=== PATIENT | male | born 1950 | race Caucasian/White ===

== ENCOUNTER 2016-08-12 10:12 | Outpatient (RCR) | payer BC ==
[~2016-08-12 10:12] MED LIST: ALLO100T PO; ASPI325T28 PO; BUSP10TA PO; CALC1TAB9 PO; CETI10TA PO; COEN200C PO; COLA100C PO; D3 PO; FISH120012 PO; FURO20TA2 PO; GEMF600T PO; GLUC1CAP9 PO; META48.53 PO; MULT1TAB18 PO; NORC5TAB PO; OMEP40CA2 PO; RAMI10CA PO; SIMV40TA2 PO; asthmanex INH
[2016-09-05] MEDS ORDERED: SILV-4 TOP (09:50)
--- NOTE | 2016-09-11 09:03 | RADONC ---
RADIATION ONCOLOGY PROGRESS NOTE: DATE OF SERVICE: 09/08/2016 Mr. Cedillo is thus far at a dose of 2700 cGy to his rectum and was last treated on 09/05/2016. The patient has been on break for today after complaining of loose bowel movements and pain upon bowel movements. He contacted us and said he would like to resume radiation the day after tomorrow. As long as he is doing better, we are more than willing to start him then. I suspect Mr. Cedillo will have a 2-day break and then begin on Thursday.
== END 2016-09-09 ==
LOC: M ONCR 10:12
PROVIDERS: ATTEND Radiology Radiation Oncology
DX: C21.0 Malignant neoplasm of anus, unspecified (principal)

== ENCOUNTER 2016-09-10 10:28 | Outpatient (RCR) | payer MEDICARE ==
[~2016-09-10 10:28] MED LIST changes: +SILV-4 TOP
--- NOTE | 2016-09-16 09:52 | RADONC ---
RADIATION ONCOLOGY PROGRESS NOTE CHART NUMBER: [id number] DATE: 09/15/2016 Mr. Cedillo is presently at a dose of 2880 cGy to his rectum and had been on rest all last week. He returns today reporting that he is feeling somewhat better and willing to restart radiation. The patient's review of systems is positive for some skin discomfort in the irradiated field but is otherwise noncontributory. He denies nausea, vomiting, fevers, chills, night sweats, diplopia, headaches, anxiety or depression, anorexia, weight loss, visual disturbances, chest pain, urinary or bowel difficulties, bone pain, or neurological problems. PHYSICAL EXAMINATION: The patient's skin shows some erythema present but overall is in good condition with no evidence of moist or dry desquamation. The remainder of his physical exam remains unchanged. Mr. Cedillo is tolerating treatments quite well and radiation has resumed today.
--- NOTE | 2016-09-23 10:24 | RADONC ---
RADIATION ONCOLOGY PROGRESS NOTE DATE: 09/22/2016 CHART NUMBER: [id number] Mr. Cedillo is presently at a dose of 3780 centigrade to his rectum and is tolerating treatments quite well at this point with no significant difficulties related to his radiation therapy other than some tenderness of the perineal area. He also some discomfort with bowel movement. The patient's review of systems is positive for some discomfort when moving his bowels, but is otherwise noncontributory. REVIEW OF SYSTEMS: The patient's review of systems is noncontributory. Denies nausea, vomiting, fevers, chills, night sweats, diplopia, headaches, anxiety or depression, anorexia, weight loss, visual disturbances, chest pain, urinary or bowel difficulties, bone pain, or neurological problems. PHYSICAL EXAMINATION: The patient's skin shows some erythema and tanning present but overall is in generally good condition with no evidence of moist or dry desquamation. The remainder of his physical exam remains unchanged. Mr. Cedillo is tolerating treatments quite well and radiation will continue as scheduled. Edited: 09/24/2015 0531
--- NOTE | 2016-09-30 12:56 | RADONC ---
RADIATION ONCOLOGY TREATMENT SUMMARY DATE: 09/26/2016 CHART NUMBER: [id number]. DIAGNOSIS: Rectal cancer. STAGE: IIIA, T3N1M0. ECOG PERFORMANCE STATUS: 1 TREATMENT SUMMARY: Mr. 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 The patient was initially diagnosed as an anal carcinoma, but following our tumor conference and review of pathology, apparently this was actually a rectal carcinoma and is therefore being treated with preoperative chemo and radiation. We treated the patient to his rectum for a dose of 4500 cGy delivered in 25 fractions of 180 cGy each over 38 elapsed days from 08/18/2016 through 09/26/2016. The patient's rectum was treated on the linear accelerator utilizing 3D conformal technique with anterior, posterior, left and right lateral estrada. An 18 MV photon beam was utilized. The patient received concomitant chemotherapy with Xeloda. Mr. Cedillo tolerated his treatments quite well and was able to complete therapy as prescribed without interruption except for a short treatment break secondary to skin reaction. I have scheduled the patient to see me again in 1 month for further followup. He will also be followed by his other physicians as well. His surgery is scheduled and we will see him prior to surgical excision. cc: MD Dejon Joshi MD Robert Johnson, MD *[facility] *Joey Landon MD
== END 2016-10-07 ==
LOC: M ONCR 10:28
PROVIDERS: ATTEND Radiology Radiation Oncology
DX: C21.0 Malignant neoplasm of anus, unspecified (principal)

== ENCOUNTER → 2016-10-10 | Outpatient (REF) | payer MEDICARE | LOC: M LAB REF 12:28 | PROVIDERS: ATTEND Internal Medicine Medical Oncology | DX: C20 Malignant neoplasm of rectum (principal) ==

== ENCOUNTER → 2016-10-29 | Outpatient (CLI) | payer MEDICARE ==
--- NOTE | 2016-10-30 10:20 | RADONC ---
RADIATION ONCOLOGY FOLLOWUP NOTE DATE: 10/29/2016 CHART NUMBER: [id number]. DIAGNOSIS: Rectal cancer. STAGE: IIIA, T3N1M0. ECOG PERFORMANCE STATUS: 0. FOLLOWUP NOTE: Mr. Cedillo is a very pleasant, 66-year-old white male with the diagnosis of what appears to be a stage IIIA, T3N1M0 moderately differentiated adenocarcinoma of the rectum who is presenting to us today for routine followup visit 1 month post completion of external beam radiation therapy. The patient presents today reporting that he is doing quite well with no complaints at this time related to his radiation therapy or disease. He has no urinary or bowel difficulties. No bone pain. REVIEW OF SYSTEMS: The patient's review of systems is noncontributory. Denies nausea, vomiting, fevers, chills, night sweats, diplopia, headaches, anxiety or depression, anorexia, weight loss, visual disturbances, chest pain, urinary or bowel difficulties, bone pain, or neurological problems. PHYSICAL EXAMINATION: The patient is a well-developed, well-nourished male in no acute distress. HEENT exam is normocephalic, atraumatic. Extraocular movements are intact. There is no palpable cervical, supraclavicular, infraclavicular, axillary, or inguinal lymphadenopathy present. Lungs are clear to auscultation and percussion. Heart has a regular rate and rhythm. Abdomen is benign with no hepatosplenomegaly, masses, or tenderness. Rectal examination reveals a normal anal sphincter tone. His prostate is smooth with no evidence of nodularity. There is continuing to be some roughness just past the anal verge into the rectum, which is markedly reduced. Skeletal examination reveals no tenderness to pressure or percussion of the bony skeleton. Extremities reveal no clubbing, cyanosis, or edema. Neurologic exam is grossly intact, as is the remainder of the physical examination. ASSESSMENT: Mr. Cedillo is clinically doing quite well with a very nice response to radiation therapy. He is scheduled to meet with his surgeon, Dr. Joey Landon, on Thursday this week to schedule and discuss his surgery. In light of the fact that he will be followed and managed so closely by his surgical oncologist, I have set him up for routine followup in our office in 6 months' time. cc: MD Dejon Joshi MD Robert Johnson, MD *[facility] *Joey Landon MD
== END ==
LOC: M ONCR 14:30
PROVIDERS: ATTEND Radiology Radiation Oncology
DX: C21.0 Malignant neoplasm of anus, unspecified (principal)

== ENCOUNTER → 2016-12-29 | Outpatient (REF) | payer MEDICARE ==
[~2016-12-29] MED LIST changes: -COLA100C PO; +COLA100C3 PO; +NORC1TAB4 PO; -NORC5TAB PO
== END ==
LOC: M LAB REF 12:58
PROVIDERS: ATTEND Internal Medicine Medical Oncology
DX: C20 Malignant neoplasm of rectum (principal)

== ENCOUNTER → 2017-02-11 | Outpatient (CLI) | payer MEDICARE ==
[~2017-02-11] MED LIST changes: -COLA100C3 PO; +COLA100C5 PO; +GASTROGRAFIN SOLUTION 30ML (Q9963) As Ordered ONE; +ISOVUE-370 76% 100ML VIAL (Q9967) As Ordered ONE
--- NOTE | 2017-02-12 16:03 | REPUSA ---
HISTORY: -RECTAL CA ?SBO. TECHNIQUE: Axial CT imaging of the abdomen and pelvis with sagittal and coronal reformatted imaging, with oral and intravenous contrast enhancement. DLP= 775.4 mGy-cm. FINDINGS: There is a low attenuated lesion laterally in the right lobe of the liver measuring approxi mately 4.5 x 2.1 x1.9 cm with peripheral contrast enhancement, most likely representing cavernous hem angioma, although further diagnostic imaging may be warranted in this patient with history of rectal carcinoma, in order to rule out possible solitary liver metastatic lesion, with dynamic contrast-enha nced MRI examination. No other liver is seen at this time. Biliary tree is normal. There is a 1.8 cm gallstone noted in the gallbladder. Pancreas is normal. Spleen is normal. Adrenal glands are no rmal. Left kidney functions normally without mass or calculus or obstruction seen. Left ureter is normal. Right kidney functions, but there is right hydronephrosis and proximal right hydroureter, although n o definite ureteral calculus is seen at this time. Follow-up imaging and consideration of retrograde pyelography is suggested if clinically indicated to evaluate and localize possible distal ureteral o bstruction. There are multiple calcified plaques seen in the abdominal aorta, bilateral renal arteries, and in th e iliac arteries with no evidence of aneurysm or retroperitoneal hemorrhage. No retroperitoneal lymp hadenopathy is seen. There is a stoma over the left lower quadrant of the abdomen with normal appearance of colostomy. Th e oral contrast is limited to the small bowel without oral contrast opacification seen in the colon. There is soft tissue density seen around the rectum which may correspond to the reported history of rectal carcinoma, but detailed evaluation is limited without oral contrast. There is fluid distentio n of the sigmoid colon and there is question of a tethered paracolic mass seen around the proximal si gmoid colon on series 201, image 94. This area is also limited without the benefit of complete bowel lumen contrast enhancement. There is a small amount of ascites identified in the right paracolic gu tter measuring 2.8 cm in thickness. There is a small amount of ascites in the anterior dependent abd omen. Bone windows demonstrate no detectable evidence of fracture or metastatic skeletal lesion. IMPRESSION: 1. 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 MRI examination is suggested to rule out possible meta static lesion in this patient with history of rectal carcinoma, if clinically indicated. 2. Cholelithiasis. 3. Right hydronephrosis and proximal right hydroureter in which distal ureteral obstruction cannot b e excluded at this time. Clinical correlation and consideration of retrograde pyelography or percuta neous nephrostomy is suggested if indicated. 4. Satisfactory appearance of stoma over the left lower quadrant of the abdomen. There is fluid dis tention seen in the colon which is not opacified with contrast, limiting detailed evaluation. There is inability to exclude possible mass in the rectum and there is question of a possible paracolic mas s in the proximal sigmoid colon as discussed above and there is a small amount of ascites in the righ t paracolic gutter and in the anterior dependent abdomen. Clinical correlation and consideration of PET/CT scan is suggested if clinically indicated. Clinical correlation and followup imaging may be warranted as clinically indicated.
== END ==
LOC: M RAD 16:25
PROVIDERS: ATTEND Internal Medicine Medical Oncology
DX: C20 Malignant neoplasm of rectum (principal); K76.9 Liver disease, unspecified; K80.20 Calculus of gallbladder without cholecystitis without obstruction; N13.1 Hydronephrosis with ureteral stricture, not elsewhere classified; R93.3 Abnormal findings on diagnostic imaging of other parts of digestive tract
CPT/HCPCS: 74177; Q9963; Q9967

== ENCOUNTER → 2017-03-13 | Outpatient (CLI) | payer MEDICARE ==
[~2017-03-13] MED LIST changes: -GASTROGRAFIN SOLUTION 30ML (Q9963) As Ordered ONE; -ISOVUE-370 76% 100ML VIAL (Q9967) As Ordered ONE
[2017-03-13 13:37] LABS: MEAN CORPUSCULAR HEMOGLOBIN 27.2 pg (27.0-33.0); MEAN CORPUSCULAR HGB CONC 32.3 g/dl (32.0-36.5); MEAN CORPUSCULAR VOLUME 84.3 fl (80.0-96.0); RED CELL DISTRIBUTION WIDTH 20.2 % (11.5-14.5)
[2017-03-13 13:47] LABS: WHITE BLOOD COUNT 37.8 K/mm3 (4.0-10.0)
[2017-03-13 13:49] LABS: ALBUMIN 3.8 GM/DL (3.2-5.2); ALBUMIN/GLOBULIN RATIO 1.15 (1.00-1.93); ALKALINE PHOSPHATASE 106 U/L (45-117); ALT/SGPT 29 U/L (12-78); ANION GAP 10 MEQ/L (8-16); AST/SGOT 18 U/L (15-37); BILIRUBIN,TOTAL 0.5 MG/DL (0.2-1.0); BLOOD UREA NITROGEN 13 MG/DL (7-18); CARBON DIOXIDE LEVEL 27 MEQ/L (21-32); CHLORIDE LEVEL 105 MEQ/L (98-107); CHOLESTEROL LEVEL 176 MG/DL (<200); CREATININE FOR GFR 0.73 MG/DL (0.70-1.30); GLOMERULAR FILTRATION RATE > 60.0 (>49); GLUCOSE, FASTING 107 MG/DL (80-110); POTASSIUM SERUM 4.2 MEQ/L (3.5-5.1); SODIUM LEVEL 142 MEQ/L (136-145); TOTAL PROTEIN 7.1 GM/DL (6.4-8.2); TRIGLYCERIDES LEVEL 215 MG/DL (<150); URIC ACID 4.3 MG/DL (3.5-7.2)
== END ==
LOC: M WUC 10:30
PROVIDERS: ATTEND Nurse Practitioner Family
DX: K21.9 Gastro-esophageal reflux disease without esophagitis (principal); E74.9 Disorder of carbohydrate metabolism, unspecified; M10.9 Gout, unspecified; E55.9 Vitamin D deficiency, unspecified; I10 Essential (primary) hypertension; E78.2 Mixed hyperlipidemia

== ENCOUNTER → 2017-03-13 | Outpatient (CLI) | payer MEDICARE ==
[2017-03-13 13:44] LABS: ANION GAP 11 MEQ/L (8-16); BLOOD UREA NITROGEN 13 MG/DL (7-18); CALCIUM LEVEL 8.8 MG/DL (8.8-10.2); CARBON DIOXIDE LEVEL 25 MEQ/L (21-32); CHLORIDE LEVEL 105 MEQ/L (98-107); CHOLESTEROL LEVEL 172 MG/DL (<200); CREATININE FOR GFR 0.69 MG/DL (0.70-1.30); GLOMERULAR FILTRATION RATE > 60.0 (>49); GLUCOSE, FASTING 107 MG/DL (80-110); POTASSIUM SERUM 4.2 MEQ/L (3.5-5.1); SODIUM LEVEL 141 MEQ/L (136-145); TRIGLYCERIDES LEVEL 213 MG/DL (<150)
== END ==
LOC: M WUC 10:24
PROVIDERS: ATTEND Internal Medicine Cardiovascular Disease
DX: I10 Essential (primary) hypertension (principal); E78.2 Mixed hyperlipidemia

== ENCOUNTER → 2017-04-29 | Outpatient (CLI) | payer MEDICARE ==
--- NOTE | 2017-04-30 08:23 | RADONC ---
RADIATION ONCOLOGY FOLLOWUP NOTE: DATE: 04/29/2017 CHART NUMBER: [id number] DIAGNOSIS: Rectal cancer. STAGE: III A, T3N1M0 ECOG PERFORMANCE STATUS: 0 Mr. Cedillo is a very pleasant 66-year-old white male with the diagnosis of what appears to be a stage III A, T3N1M0 moderately differentiated adenocarcinoma of the rectum who is presenting to us today for followup visit 7 months post completion of external beam radiation therapy. The patient presents today reporting that he completed his last chemotherapy last week. He is being followed and managed closely by his chemotherapy physicians. He does report that he has had a stent placed. He has hydronephrosis and other issues. He is being followed closely by Dr. Landon and will be seen by him again next week as well as by the urologist. He is being managed for his colostomy with a colostomy nurse as well. REVIEW OF SYSTEMS: The patient's review of systems is positive for the use of a colostomy. It is otherwise generally noncontributory. He denies nausea, vomiting, fevers, chills, night sweats, diplopia, headaches, anxiety, depression, anorexia, weight loss, visual disturbances, chest pain, bone pain or neurological problems. PHYSICAL EXAMINATION: The patient is a well-developed, well-nourished male in no acute distress. HEENT exam is normocephalic, atraumatic. Extraocular movements are intact. There is no palpable cervical, supraclavicular, infraclavicular, axillary, or inguinal lymphadenopathy present. Lungs are clear to auscultation and percussion. Heart has a regular rate and rhythm. Abdomen is benign with no hepatosplenomegaly, masses or tenderness. His colostomy site shows no evidence of infection. Skeletal examination reveals no tenderness to pressure or percussion of the bony skeleton. Extremities reveal no clubbing, cyanosis, or edema. Neurologic exam is grossly intact, as is the remainder of the physical examination. ASSESSMENT: The patient is clinically stable at this point. He is being followed and managed closely by his other physicians and is indeed scheduled to see Dr. Landon next week. He is following closely with Dr. Calix who has just completed chemotherapy. In light of this, I have discharged him from our followup except on a as needed basis. We are available to him if we could provide him with any information or be of any assistance whatsoever. cc: Ra Shelton MD [address] [facility] [id number] Dejon Calix MD [facility] On[facility]Hematology [address] [facility] [address] Darrell Peres MD [facility] [address] [facility] [address] Joey Landon MD [address] [facility] [address]
== END ==
LOC: M ONCR 11:19
PROVIDERS: ATTEND Radiology Radiation Oncology
DX: C21.0 Malignant neoplasm of anus, unspecified (principal)

== ENCOUNTER → 2017-05-11 | Outpatient (REF) | payer MEDICARE | LOC: M LAB REF 13:26 | PROVIDERS: ATTEND Internal Medicine Medical Oncology | DX: C20 Malignant neoplasm of rectum (principal) ==

== ENCOUNTER → 2017-08-11 | Outpatient (REF) | payer MEDICARE ==
[2017-08-11 12:54] LABS: CARCINOEMBRYONIC ANTIGEN 3.1 NG/ML (<2.5)
[2017-08-11 12:59] LABS: FREE T4 0.89 NG/DL (0.76-1.46)
== END ==
LOC: M LAB REF 11:44
DX: C20 Malignant neoplasm of rectum (principal)
CPT/HCPCS: 82378

== ENCOUNTER → 2017-09-07 | Outpatient (CLI) | payer MEDICARE ==
[2017-09-07 20:17] LABS: ALBUMIN 3.9 GM/DL (3.2-5.2); ALBUMIN/GLOBULIN RATIO 1.15 (1.00-1.93); ALKALINE PHOSPHATASE 88 U/L (45-117); ALT/SGPT 52 U/L (12-78); ANION GAP 9 MEQ/L (8-16); AST/SGOT 31 U/L (7-37); BILIRUBIN,TOTAL 0.4 MG/DL (0.2-1.0); BLOOD UREA NITROGEN 13 MG/DL (7-18); CALCIUM LEVEL 8.5 MG/DL (8.8-10.2); CARBON DIOXIDE LEVEL 28 MEQ/L (21-32); CHLORIDE LEVEL 107 MEQ/L (98-107); CHOLESTEROL LEVEL 189 MG/DL (<200); CHOLESTEROL RISK RATIO 4.108 (<5); GLOMERULAR FILTRATION RATE > 60.0 (>49); GLUCOSE, FASTING 118 MG/DL (70-100); HDL CHOLESTEROL 46 MG/DL (>40); LDL CHOLESTEROL 93.8 MG/DL (<100); NON-HDL-C 143 MG/DL; POTASSIUM SERUM 3.9 MEQ/L (3.5-5.1); SODIUM LEVEL 144 MEQ/L (136-145); TOTAL PROTEIN 7.3 GM/DL (6.4-8.2); TRIGLYCERIDES LEVEL 246 MG/DL (<150); URIC ACID 4.2 MG/DL (3.5-7.2)
[2017-09-07 20:24] LABS: TOTAL 25(OH) VITAMIN D 25.9 NG/ML (30.0-100.0)
== END ==
LOC: M WUC 11:49
DX: K21.9 Gastro-esophageal reflux disease without esophagitis (principal); I10 Essential (primary) hypertension; E78.4 Other hyperlipidemia; E55.9 Vitamin D deficiency, unspecified
CPT/HCPCS: 84550

== ENCOUNTER → 2017-11-09 | Outpatient (REF) | payer MEDICARE ==
[2017-11-10 09:55] LABS: CARCINOEMBRYONIC ANTIGEN 3.2 NG/ML (<2.5)
== END ==
LOC: M LAB REF 12:54
DX: C20 Malignant neoplasm of rectum (principal)
CPT/HCPCS: 82378

== ENCOUNTER → 2017-12-21 | Outpatient (CLI) | payer MEDICARE ==
[2017-12-21 18:08] LABS: CHOLESTEROL LEVEL 193 MG/DL (<200); CHOLESTEROL RISK RATIO 4.288 (<5); HDL CHOLESTEROL 45 MG/DL (>40); LDL CHOLESTEROL 98.6 MG/DL (<100); NON-HDL-C 148 MG/DL; TRIGLYCERIDES LEVEL 247 MG/DL (<150)
== END ==
LOC: M WUC 11:05
DX: E78.4 Other hyperlipidemia (principal); E55.9 Vitamin D deficiency, unspecified
CPT/HCPCS: 82306

== ENCOUNTER → 2018-02-09 | Outpatient (REF) | payer MEDICARE | LOC: M LAB REF 13:32 | DX: C20 Malignant neoplasm of rectum (principal) | CPT/HCPCS: 82378 ==

== ENCOUNTER → 2018-02-12 | Outpatient (CLI) | payer MEDICARE ==
[~2018-02-12] MED LIST changes: -ALLO100T PO; -ASPI325T28 PO; -BUSP10TA PO; -CALC1TAB9 PO; -CETI10TA PO; -COEN200C PO; -COLA100C5 PO; -D3 PO; -FISH120012 PO; -FURO20TA2 PO; +GASTROGRAFIN SOLUTION 30ML (Q9963) As Ordered; -GEMF600T PO; -GLUC1CAP9 PO; +ISOVUE-370 76% 100ML VIAL (Q9967) As Ordered; -META48.53 PO; -MULT1TAB18 PO; -NORC1TAB4 PO; -OMEP40CA2 PO; -RAMI10CA PO; -SILV-4 TOP; -SIMV40TA2 PO; -asthmanex INH
== END ==
LOC: M RAD 15:20
DX: C20 Malignant neoplasm of rectum (principal); R97.0 Elevated carcinoembryonic antigen [CEA]; K76.0 Fatty (change of) liver, not elsewhere classified; K80.00 Calculus of gallbladder with acute cholecystitis without obstruction; K43.9 Ventral hernia without obstruction or gangrene
CPT/HCPCS: Q9963

== ENCOUNTER → 2018-04-02 | Outpatient (CLI) | payer MEDICARE ==
[2018-04-02 17:14] LABS: CHOLESTEROL LEVEL 180 MG/DL (<200); CHOLESTEROL RISK RATIO 3.913 (<5); HDL CHOLESTEROL 46 MG/DL (>40); LDL CHOLESTEROL 98.6 MG/DL (<100); NON-HDL-C 134 MG/DL; TRIGLYCERIDES LEVEL 177 MG/DL (<150); URIC ACID 3.6 MG/DL (3.5-7.2)
[2018-04-02 17:18] LABS: TOTAL 25(OH) VITAMIN D 29.6 NG/ML (30.0-100.0)
== END ==
LOC: M WUC 14:48
DX: E78.4 Other hyperlipidemia (principal); M10.9 Gout, unspecified; E55.9 Vitamin D deficiency, unspecified
CPT/HCPCS: 84550

== ENCOUNTER → 2018-05-11 | Outpatient (CLI) | payer MEDICARE ==
[2018-05-11 17:33] LABS: BASO % 0.9 % (0.0-1.0); EOS # 0.3 10^3/uL (0.0-0.50); EOS % 6.2 % (0.0-3.0); HEMATOCRIT 42.6 % (42.0-52.0); HEMOGLOBIN 13.4 g/dl (13.5-17.5); IMMATURE GRANULOCYTE % 0.4 % (0-3.0); LYMPH # 0.7 10^3/uL (1.5-4.5); LYMPH % 15.1 % (24.0-44.0); MEAN CORPUSCULAR HGB CONC 31.5 g/dl (32.0-36.5); MEAN CORPUSCULAR VOLUME 85.9 fl (80.0-96.0); MONO # 0.5 10^3/uL (0.0-0.8); NEUTROPHILS % 67.4 % (36.0-66.0); PLATELET COUNT, AUTOMATED 221 10^3/uL (150-450); RED BLOOD COUNT 4.96 10^6/uL (4.30-6.10); RED CELL DISTRIBUTION WIDTH 14.7 % (11.5-14.5); WHITE BLOOD COUNT 4.5 10^3/uL (4.0-10.0)
[2018-05-11 18:50] LABS: ALBUMIN 3.7 GM/DL (3.2-5.2); ALBUMIN/GLOBULIN RATIO 1.12 (1.00-1.93); ALKALINE PHOSPHATASE 89 U/L (45-117); ALT/SGPT 53 U/L (12-78); ANION GAP 10 MEQ/L (8-16); AST/SGOT 32 U/L (7-37); BILIRUBIN,TOTAL 0.3 MG/DL (0.2-1.0); BLOOD UREA NITROGEN 12 MG/DL (7-18); CALCIUM LEVEL 9.1 MG/DL (8.8-10.2); CARBON DIOXIDE LEVEL 27 MEQ/L (21-32); CHLORIDE LEVEL 106 MEQ/L (98-107); CREATININE FOR GFR 0.85 MG/DL (0.70-1.30); GLOMERULAR FILTRATION RATE > 60.0 (>49); GLUCOSE, FASTING 137 MG/DL (70-100); POTASSIUM SERUM 4.4 MEQ/L (3.5-5.1); SODIUM LEVEL 143 MEQ/L (136-145)
[2018-05-11 19:15] LABS: CARCINOEMBRYONIC ANTIGEN 5.6 NG/ML (<2.5)
== END ==
LOC: M WUC 11:51
DX: C20 Malignant neoplasm of rectum (principal)
CPT/HCPCS: 82378

== ENCOUNTER → 2018-05-14 | Outpatient (CLI) | payer MEDICARE | LOC: M RAD 10:15 | DX: N64.4 Mastodynia (principal) | CPT/HCPCS: 77066 ==

== ENCOUNTER → 2018-07-23 | Outpatient (CLI) | payer MEDICARE ==
[2018-07-23 18:01] LABS: BLOOD UREA NITROGEN 15 MG/DL (7-18)
[2018-07-23 18:01] LABS: CREATININE FOR GFR 0.88 MG/DL (0.70-1.30); GLOMERULAR FILTRATION RATE > 60.0 (>49)
== END ==
LOC: M WUC 11:59
DX: N18.9 Chronic kidney disease, unspecified (principal)
CPT/HCPCS: 82565

== ENCOUNTER → 2018-07-28 | Outpatient (CLI) | payer MEDICARE ==
[~2018-07-28] MED LIST changes: +ALLO100T PO; +ASPI-222 PO; +BUSP10TA PO; +CALC1TAB9 PO; +CETI10TA PO; +COEN200C PO; +COLA100C5 PO; +D3 PO; +FISH120012 PO; +FISH5CAP PO; +FLUT44IN INH; +FURO20TA2 PO; -GASTROGRAFIN SOLUTION 30ML (Q9963) As Ordered; +GEMF600T5 PO; +GLUC1CAP9 PO; -ISOVUE-370 76% 100ML VIAL (Q9967) As Ordered; +LOPR1TAB6 PO; +META48.53 PO; +MULT1TAB18 PO; +NORC1TAB4 PO; +OMEP40CA2 PO; +RAMI1CAP26 PO; +SILV-4 TOP; +SIMV40TA2 PO; +asthmanex INH
--- NOTE | 2018-07-28 17:01 | REP ---
CT Head without contrast HISTORY: Infarction COMPARISON: None Areas of decreased attenuation are present in the periventricular white matter. This represents small-vessel ischemic disease. There is no intraparenchymal hemorrhage, acute infarct, mass or midline shift. The ventricular system and cortical sulci as well as subarachnoid space in the posterior fossa are dilated consistent with mild volume loss. There is no extra cerebral collection. There is no fracture. Mucosal thickening is present in the left sphenoid sinus. IMPRESSION: 1. Small vessel ischemic disease. 2. Mild volume loss. Electronically Signed by Joey Melvin MD 07/28/2018 04:52 P
== END ==
LOC: M RAD 16:00
PROVIDERS: ATTEND Psychiatry & Neurology Neurology
DX: R90.82 White matter disease, unspecified (principal)

== ENCOUNTER → 2018-10-01 | Outpatient (CLI) | payer MEDICARE ==
[2018-10-01 13:00] LABS: BASO % 0.8 % (0.0-1.0); EOS # 0.2 10^3/uL (0.0-0.50); EOS % 4.6 % (0.0-3.0); HEMATOCRIT 43.8 % (42.0-52.0); LYMPH # 1.3 10^3/uL (1.5-4.5); LYMPH % 24.5 % (24.0-44.0); MEAN CORPUSCULAR HEMOGLOBIN 27.3 pg (27.0-33.0); MEAN CORPUSCULAR VOLUME 85.5 fl (80.0-96.0); MONO # 0.6 10^3/uL (0.0-0.8); MONO % 10.6 % (0.0-5.0); NEUTROPHILS # 3.1 10^3/uL (1.8-7.7); NEUTROPHILS % 59.1 % (36.0-66.0); PLATELET COUNT, AUTOMATED 234 10^3/uL (150-450); RED BLOOD COUNT 5.12 10^6/uL (4.30-6.10); WHITE BLOOD COUNT 5.2 10^3/uL (4.0-10.0)
[2018-10-01 13:07] LABS: ALBUMIN 3.7 GM/DL (3.2-5.2); ALT/SGPT 46 U/L (12-78); BILIRUBIN,TOTAL 0.3 MG/DL (0.2-1.0); BLOOD UREA NITROGEN 17 MG/DL (7-18); CALCIUM LEVEL 9.5 MG/DL (8.8-10.2); CARBON DIOXIDE LEVEL 28 MEQ/L (21-32); CHLORIDE LEVEL 104 MEQ/L (98-107); CREATININE FOR GFR 0.85 MG/DL (0.70-1.30); GLOMERULAR FILTRATION RATE > 60.0 (>49); GLUCOSE, FASTING 140 MG/DL (70-100); LDH LACTATE DEHYDROGENASE 151 U/L (87-241); POTASSIUM SERUM 4.1 MEQ/L (3.5-5.1); SODIUM LEVEL 140 MEQ/L (136-145); TOTAL PROTEIN 7.2 GM/DL (6.4-8.2)
== END ==
LOC: M WUC 10:08
PROVIDERS: ATTEND Internal Medicine Hematology & Oncology
DX: C20 Malignant neoplasm of rectum (principal)

== ENCOUNTER → 2018-10-05 | Outpatient (CLI) | payer MEDICARE ==
--- NOTE | 2018-10-05 17:13 | REP ---
PET/CT: History: Restaging rectal carcinoma. Original diagnosis June 2016 moderately differentiated adenocarcinoma of the rectum stage III A. He is status post neoadjuvant chemotherapy and laparoscopic abdominoperineal resection. Comparisons: Comparison is made with a selected images from outside prior PET-CT studies dated June 18, 2018 and August 05, 2016. Prior CT study of the chest abdomen pelvis is also reviewed June 23, 2016. TECHNIQUE: 58 minutes following the intravenous injection of a 8.0 mCi dose of F-18 FDG, three-dimensional PET scintigraphy is acquired from the skull base to the proximal thighs. Triplanar noncontrast CT scanning is acquired through the same anatomic range for attenuation correction, and image registration with scan parameters optimized to minimize radiation exposure to the patient. PET scintigraphy and CT datasets were fused and displayed on a workstation with multiplanar and projection display capability. PET/CT Findings: There is some mild arthritis associated uptake in the left shoulder. There is a [id number] catheter visible on the left. No abnormal hilar or mediastinal uptake is seen. No abnormal hepatic uptake is noted. The previously noted hepatic hemangioma is again seen. A densely calcified gallstone is visible in the gallbladder. There is a focus of mildly hypermetabolic uptake in the ascending colon with maximum standard uptake value 7.42. Background colonic mucosal uptake is otherwise approximately 3.0. This raises a question of a right colonic neoplasm. This is not previously apparent. The patient is status post abdominoperineal resection. No other abnormal hypermetabolic uptake is seen in the abdomen or pelvis. The exam is otherwise unremarkable. Impression: Equivocal focus of ascending colon uptake just above the ileocecal valve. Early neoplasm versus mucosal uptake. No other abnormal hypermetabolic focus seen. Electronically Signed by Bari Lockwood MD 10/05/2018 07:31 P
== END ==
LOC: M PLARAD 07:33
PROVIDERS: ATTEND Internal Medicine Hematology & Oncology
DX: C20 Malignant neoplasm of rectum (principal)
CPT/HCPCS: 78815; A9552

== ENCOUNTER → 2018-12-21 | Outpatient (CLI) | payer MEDICARE ==
[~2018-12-21] MED LIST changes: +ATEN50TA2 PO; -NORC1TAB4 PO; +NORC1TAB7 PO; +VITA200012 PO
[2018-12-21 16:53] LABS: HEMATOCRIT 44.7 % (42.0-52.0); HEMOGLOBIN 14.1 g/dl (13.5-17.5); MEAN CORPUSCULAR HEMOGLOBIN 27.3 pg (27.0-33.0); MEAN CORPUSCULAR HGB CONC 31.5 g/dl (32.0-36.5); MEAN CORPUSCULAR VOLUME 86.5 fl (80.0-96.0); PLATELET COUNT, AUTOMATED 200 10^3/uL (150-450); RED BLOOD COUNT 5.17 10^6/uL (4.30-6.10); WHITE BLOOD COUNT 5.2 10^3/uL (4.0-10.0)
[2018-12-21 17:07] LABS: HEMOGLOBIN A1c 7.5 %
[2018-12-21 17:26] LABS: ALBUMIN 3.6 GM/DL (3.2-5.2); ALT/SGPT 57 U/L (12-78); BILIRUBIN,TOTAL 0.5 MG/DL (0.2-1.0); BLOOD UREA NITROGEN 13 MG/DL (7-18); CALCIUM LEVEL 8.9 MG/DL (8.8-10.2); CARBON DIOXIDE LEVEL 26 MEQ/L (21-32); CHLORIDE LEVEL 105 MEQ/L (98-107); CHOLESTEROL LEVEL 195 MG/DL (<200); CHOLESTEROL RISK RATIO 4.239 (<5); CREATININE FOR GFR 0.95 MG/DL (0.70-1.30); GLOMERULAR FILTRATION RATE > 60.0 (>49); GLUCOSE, FASTING 139 MG/DL (70-100); HDL CHOLESTEROL 46 MG/DL (>40); LDL CHOLESTEROL 102 MG/DL (<100); NON-HDL-C 149 MG/DL; POTASSIUM SERUM 4.3 MEQ/L (3.5-5.1); SODIUM LEVEL 139 MEQ/L (136-145); THYROID STIMULATING HORMONE 0.888 uIU/ML (0.358-3.740); TOTAL 25(OH) VITAMIN D 29.8 NG/ML (30.0-100.0); TOTAL PROTEIN 7.5 GM/DL (6.4-8.2); TRIGLYCERIDES LEVEL 236 MG/DL (<150); URIC ACID 3.8 MG/DL (3.5-7.2)
== END ==
LOC: M WUC 14:14
PROVIDERS: ATTEND Nurse Practitioner Family
DX: K21.9 Gastro-esophageal reflux disease without esophagitis (principal); I10 Essential (primary) hypertension; E74.9 Disorder of carbohydrate metabolism, unspecified; E78.49 Other hyperlipidemia; C20 Malignant neoplasm of rectum; F32.9 Major depressive disorder, single episode, unspecified; M10.9 Gout, unspecified; E55.9 Vitamin D deficiency, unspecified
CPT/HCPCS: 36415; 80053; 80061; 82306; 83036; 84443; 84550; 85027; G0103

== ENCOUNTER → 2019-02-15 | Outpatient (CLI) | payer MEDICARE ==
[2019-02-15 14:50] LABS: BLOOD UREA NITROGEN 13 MG/DL (7-18); CARBON DIOXIDE LEVEL 29 MEQ/L (21-32); CHLORIDE LEVEL 107 MEQ/L (98-107); CREATININE FOR GFR 0.92 MG/DL (0.70-1.30); GLOMERULAR FILTRATION RATE > 60.0 (>49); GLUCOSE, FASTING 126 MG/DL (70-100); POTASSIUM SERUM 4.1 MEQ/L (3.5-5.1); SODIUM LEVEL 142 MEQ/L (136-145)
== END ==
LOC: M WUC 13:10
PROVIDERS: ATTEND Internal Medicine Cardiovascular Disease
DX: I48.91 Unspecified atrial fibrillation (principal)

== ENCOUNTER → 2019-03-28 | Outpatient (CLI) | payer MEDICARE ==
[2019-03-28 16:55] LABS: CHOLESTEROL RISK RATIO 4.319 (<5)
[2019-03-28 17:01] LABS: TOTAL 25(OH) VITAMIN D 41.9 NG/ML (30.0-100.0)
[2019-03-28 17:06] LABS: MALB URINE SIEMENS 53.8 MG/L; MAU/CREAT RATIO 23.4 MCG/MG (0.0-30.0)
[2019-03-28 17:12] LABS: HEMOGLOBIN A1c 6.8 %
== END ==
LOC: M WUC 11:08
PROVIDERS: ATTEND Nurse Practitioner Family
DX: E11.8 Type 2 diabetes mellitus with unspecified complications (principal); E78.49 Other hyperlipidemia; M10.9 Gout, unspecified; E55.9 Vitamin D deficiency, unspecified

== ENCOUNTER → 2019-06-23 | Outpatient (CLI) | payer MEDICARE ==
[~2019-06-23] MED LIST changes: -ASPI-222 PO; +ASPI-527 PO; +ELIQ5TAB PO; -OMEP40CA2 PO; +OMEP40CA97 PO
[2019-06-23 13:13] LABS: CHOLESTEROL RISK RATIO 3.811 (<5); TOTAL 25(OH) VITAMIN D 33.6 NG/ML (30.0-100.0); URIC ACID 3.3 MG/DL (3.5-7.2)
[2019-06-23 13:27] LABS: HEMOGLOBIN A1c 6.7 %
== END ==
LOC: M WUC 10:09
PROVIDERS: ATTEND Nurse Practitioner Family
DX: E11.8 Type 2 diabetes mellitus with unspecified complications (principal); E78.49 Other hyperlipidemia; E55.9 Vitamin D deficiency, unspecified

== ENCOUNTER → 2019-07-15 | Outpatient (CLI) | payer MEDICARE ==
[~2019-07-15] MED LIST changes: +ATOR80TA59 PO; +LIDO5DIS41 TOP; +LIDOCAINE 1% MDV 20ML VIAL As Ordered ONE; +MIDAZOLAM INJ 2 MG/2 ML VIAL (J2250) As Ordered ONE; +PERC5TAB12 PO; +PRED20TA PO; -SIMV40TA2 PO; +SIMV40TA20 PO; +diphenhydrAMINE INJ 50MG/ML VIAL (J1200) As Ordered ONE; +fentaNYL 100 MCG/2 ML INJECTION (J3010) As Ordered ONE
--- NOTE | 2019-07-15 16:55 | POST-OPPD ---
Postoperative Procedure Note Date Of Procedure: Jul 15, 2019 Time Of Procedure: 16:54 PREOPERATIVE DIAGNOSIS:rectal ca. finished therapy POSTOPERATIVE DIAGNOSIS: same. finished therapy FINDINGS: left side port PROCEDURE: removed SURGEON: danie ANESTHESIA: mod sed ESTIMATED BLOOD LOSS: < 5 ml COMPLICATIONS: none POSTOPERATIVE CONDITION: stable KYLER HERNANDEZ MD Jul 15, 2019 16:55
[2019-07-15 18:21] VITALS: BP 164/89
--- NOTE | 2019-07-19 08:06 | REP ---
IR port removal. IR moderate sedation. Clinical information: Rectal cancer. Port no longer needed. Physician: Dr. Shields. Procedure: The patient was advised of the benefits, risks and alternatives of the procedure and informed consent was obtained. The time-out was performed with verification of the patient's name, MRN, site of procedure and type of procedure to be performed. The patient was positioned in the supine position on the angiographic table. The site was prepped and draped in the usual sterile fashion. Moderate sedation was performed by the physician including the presence of an independent trained observer who assisted and monitored the patient's level of consciousness and physiologic status. Following the administration of fentanyl and Versed, the physician spent 45 minutes of continuous face to face time with the patient. A development specialist radiograph reveals a left-sided port. The soft tissues overlying the port pocket were anesthetized with lidocaine. An incision was made over the port using an 15 blade scalpel in the location of the prior incision. The catheter was then freed with blunt dissection and extracted. Pressure was applied to obtain hemostasis. The port was then freed with blunt dissection and subsequently removed. There are no signs of infection. After hemostasis was achieved, the incision was closed with interrupted deep 2-0 Vicryl sutures and subcuticular Monocryl sutures. The site was cleansed and covered with a sterile dressing. A follow-up radiograph demonstrates complete removal of the port. The patient tolerated the procedure well and was returned to PRU in stable condition. EBL: < 5 ml. Complications: None. Conclusion: 1. Successful explant of a left sided port. 2. No signs of infection. Thank you this referral. Electronically Signed by Melissa Shields MD 07/19/2019 08:05 A
== END ==
LOC: M IRPRO 13:27
PROVIDERS: ATTEND Radiology Diagnostic Radiology
DX: Z45.2 Encounter for adjustment and management of vascular access device (principal); C20 Malignant neoplasm of rectum
CPT/HCPCS: 36590; 99152; 99153; J1200; J2250; J3010

== ENCOUNTER 2019-08-04 16:15 | Emergency (ER) | payer MEDICARE ==
[~2019-08-04] VITALS: Ht 172.7 cm; Wt 111.0 kg
[~2019-08-04 16:15] MED LIST changes: -ATOR80TA59 PO; -LIDO5DIS41 TOP; -LIDOCAINE 1% MDV 20ML VIAL As Ordered ONE; -MIDAZOLAM INJ 2 MG/2 ML VIAL (J2250) As Ordered ONE; -PERC5TAB12 PO; -PRED20TA PO; -diphenhydrAMINE INJ 50MG/ML VIAL (J1200) As Ordered ONE; -fentaNYL 100 MCG/2 ML INJECTION (J3010) As Ordered ONE
[2019-08-04] MEDS ORDERED: LIDOCAINE 5% (LIDODERM) PATCH TD ONE (20:00)
[2019-08-04 20:46] LABS: BASO % 0.7 % (0.0-1.0); EOS # 0.3 10^3/uL (0.0-0.5); EOS % 5.9 % (0.0-3.0); HEMATOCRIT 42.9 % (42.0-52.0); HEMOGLOBIN 13.5 g/dl (13.5-17.5); LYMPH # 0.7 10^3/uL (1.5-5.0); LYMPH % 13.7 % (24.0-44.0); MEAN CORPUSCULAR HEMOGLOBIN 27.6 pg (27.0-33.0); MEAN CORPUSCULAR HGB CONC 31.5 g/dl (32.0-36.5); MEAN CORPUSCULAR VOLUME 87.7 fl (80.0-96.0); MONO # 0.5 10^3/uL (0.0-0.8); MONO % 8.9 % (0.0-5.0); NEUTROPHILS # 3.8 10^3/uL (1.5-8.5); NEUTROPHILS % 70.2 % (36.0-66.0); PLATELET COUNT, AUTOMATED 185 10^3/uL (150-450); RED BLOOD COUNT 4.89 10^6/uL (4.30-6.10); WHITE BLOOD COUNT 5.4 10^3/uL (4.0-10.0)
[2019-08-04 21:04] LABS: BLOOD UREA NITROGEN 17 MG/DL (7-18); CALCIUM LEVEL 8.6 MG/DL (8.8-10.2); CARBON DIOXIDE LEVEL 27 MEQ/L (21-32); CHLORIDE LEVEL 111 MEQ/L (98-107); CREATININE FOR GFR 0.83 MG/DL (0.70-1.30); GLOMERULAR FILTRATION RATE > 60.0 (>49); GLUCOSE, FASTING 99 MG/DL (70-100); POTASSIUM SERUM 4.3 MEQ/L (3.5-5.1); SODIUM LEVEL 144 MEQ/L (136-145)
--- NOTE | 2019-08-04 21:04 | REPVR ---
PROCEDURE INFORMATION: Exam: CT Lumbar Spine Without Contrast Exam date and time: 08/04/2019 7:58 PM Age: 68 years old Clinical indication: Low back pain; Additional info: Midline low back pain, h/o cancer TECHNIQUE: Imaging protocol: Computed tomography images of the lumbar spine without contrast. Radiation optimization: All CT scans at this facility use at least one of these dose optimization techniques: automated exposure control; mA and/or kV adjustment per patient size (includes targeted exams where dose is matched to clinical indication); or iterative reconstruction. COMPARISON: No relevant prior studies available. FINDINGS: Vertebrae: Mild dextroscoliosis centered at L3 and lower thoracic levoscoliosis. L1-L2: Interspace narrowing and vacuum phenomenon and slight retrolisthesis with minimal facet arthropathy and no significant spinal or foraminal stenosis. L2-L3: Prominent interspace narrowing with vacuum phenomenon and slight retrolisthesis with mild facet arthropathy. There is low normal size of the spinal canal and no significant foraminal stenosis. L3-L4: Moderate interspace narrowing with minimal diffuse bulge and near loss of posterior concavity. There is mild facet arthropathy with no spinal stenosis. There is low normal size of the neural foramen. L4-L5: Prominent interspace narrowing and vacuum phenomenon and slight retrolisthesis and mild posterior osteophytes and moderate facet arthropathy. There is borderline spinal stenosis and borderline right neural foraminal stenosis. L5-S1: Moderate interspace narrowing vacuum phenomenon and minimal posterior osteophytes and disc protrusion with mild facet arthropathy, right greater than left. There is borderline right neural foraminal stenosis. Vasculature: There is moderate atherosclerotic calcification of the abdominal aorta with extension into the iliac arteries. Soft tissues: Unremarkable. IMPRESSION: 1. Scoliosis with multilevel degenerative disc changes and facet arthropathy with borderline spinal stenosis L4-L5 and borderline right neural foraminal stenosis at L4-L5 and L5-S1. 2. No acute fracture or subluxation. Electronically signed by: Eren Hays On 08/04/2019 21:04:12 PM
--- NOTE | 2019-08-04 21:12 | REPVR ---
PROCEDURE INFORMATION: Exam: CT Pelvis Without Contrast; Skeletal Exam date and time: 08/04/2019 7:58 PM Age: 68 years old Clinical indication: Hip pain; Bilateral; Additional info: Midline low back pain, h/o cancer TECHNIQUE: Imaging protocol: Computed tomography images of the pelvis without contrast. Exam focused on the skeletal structures. Radiation optimization: All CT scans at this facility use at least one of these dose optimization techniques: automated exposure control; mA and/or kV adjustment per patient size (includes targeted exams where dose is matched to clinical indication); or iterative reconstruction. COMPARISON: CT ABD PELVIS W/O FOL BY WIT 02/12/2018 4:51 PM FINDINGS: Stomach and bowel: Mural lipoma within a small bowel segment in the upper pelvis to the left of midline measuring 2.1 x 1.3 x 1.3 cm and is unchanged from the prior study. Distal colectomy with colostomy to the left of the umbilicus at the level of the sigmoid. Minimal sigmoid diverticulosis. Appendix: There are no changes of appendicitis. A normal appendix is not seen. Bones/joints: No destructive or lytic changes. No fractures. Facet arthropathy of the lower lumbar spine degenerative disc change. Fusion of the left SI joint. Soft tissues: Intramuscular lipoma in the lower left lateral abdominal musculature apparently within the left internal oblique. IMPRESSION: 1. Degenerative changes of the lower lumbar spine with fusion of the left SI joint. 2. 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 3. 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 4. Status post distal colectomy with colostomy at the level of the sigmoid. 5. Minimal sigmoid diverticulosis. 6. Otherwise negative CT pelvis. No lytic or destructive changes and no fractures. Electronically signed by: Eren Hays On 08/04/2019 21:12:50 PM
[2019-08-04 21:15] LABS: ERYTHROCYTE SEDIMENTATION RATE 43 mm/hr (0-20)
[2019-08-04 22:05] VITALS: BP 127/71
[2019-08-04] MEDS ORDERED: ATOR80TA59 PO (22:11)
[2019-08-04] MEDS ORDERED: ACETAMINOPHEN 325 MG TAB PO ONE (22:30)
[2019-08-04] MEDS ORDERED: PRED20TA PO (22:56)
[2019-08-04] MEDS ORDERED: LIDO5DIS41 TOP (23:16)
[2019-08-05] MEDS ORDERED: **NOTE PATIENT COMMENT** MISC XX SCH (08:00)
== END 2019-08-04 23:25 | disposition home or self-care (01) ==
LOC: M ED 16:15
DX: S39.012A Strain of muscle, fascia and tendon of lower back, initial encounter (principal); M48.07 Spinal stenosis, lumbosacral region; M51.37 Other intervertebral disc degeneration, lumbosacral region; M41.9 Scoliosis, unspecified; W00.1XXA Fall from stairs and steps due to ice and snow, initial encounter; Y92.89 Other specified places as the place of occurrence of the external cause; K57.32 Diverticulitis of large intestine without perforation or abscess without bleeding; Z90.49 Acquired absence of other specified parts of digestive tract; Z93.3 Colostomy status; I48.91 Unspecified atrial fibrillation; I10 Essential (primary) hypertension; Z85.048 Personal history of other malignant neoplasm of rectum, rectosigmoid junction, and anus; Z92.21 Personal history of antineoplastic chemotherapy; Z92.3 Personal history of irradiation; G47.30 Sleep apnea, unspecified; F41.9 Anxiety disorder, unspecified; Z98.890 Other specified postprocedural states; Z87.891 Personal history of nicotine dependence; Z88.5 Allergy status to narcotic agent; Z79.899 Other long term (current) drug therapy; Z79.51 Long term (current) use of inhaled steroids; Z79.01 Long term (current) use of anticoagulants

== ENCOUNTER 2019-08-13 17:23 | Emergency (ER) | payer MEDICARE ==
[~2019-08-13] VITALS: Ht 172.7 cm; Wt 106.8 kg
[~2019-08-13 17:23] MED LIST changes: +ATOR80TA59 PO; +LIDO5DIS41 TOP; +PRED20TA PO
[2019-08-13] MEDS ORDERED: PERC5TAB12 PO (18:22)
[2019-08-13] MEDS ORDERED: OXYCODONE/APAP 5MG/325MG(BULK FOR ED) 1 TABLET PO ONE (18:30)
[2019-08-13 19:09] VITALS: BP 112/82
== END 2019-08-13 19:20 | disposition home or self-care (01) ==
LOC: M ED 17:23
DX: M48.07 Spinal stenosis, lumbosacral region (principal); M54.5 Low back pain; I10 Essential (primary) hypertension; I48.91 Unspecified atrial fibrillation; G47.33 Obstructive sleep apnea (adult) (pediatric); Z87.891 Personal history of nicotine dependence; Z88.5 Allergy status to narcotic agent; Z79.899 Other long term (current) drug therapy; Z79.01 Long term (current) use of anticoagulants

== ENCOUNTER → 2019-08-18 | Outpatient (REF) | payer MEDICARE ==
[~2019-08-18] MED LIST changes: +PERC5TAB12 PO
[2019-08-18 14:30] LABS: BLOOD UREA NITROGEN 13 MG/DL (7-18); CREATININE FOR GFR 0.84 MG/DL (0.70-1.30); GLOMERULAR FILTRATION RATE > 60.0 (>49)
== END ==
LOC: M LABDRAW1 14:10
PROVIDERS: ATTEND Orthopaedic Surgery
DX: M51.36 Other intervertebral disc degeneration, lumbar region (principal)

== ENCOUNTER → 2019-09-02 | Outpatient (CLI) | payer MEDICARE ==
[~2019-09-02] MED LIST changes: -COEN200C PO; +RA C200C2 PO
--- NOTE | 2019-09-02 17:53 | REP ---
MRI lumbar spine without contrast: History: Degenerative disc disease in the lumbar region. Comparison CT study of the lumbar spine August 04, 2019. Comparison radionuclide bone scan August 26, 2019. The patient has a history of rectal carcinoma. Technique: Sagittal and axial T1 and T2-weighted scans are acquired in the usual fashion with and without fat saturation. Sequences include spin echo, turbo spin-echo, and STIR imaging sequences. MRI findings: There is abnormal heterogeneous signal intensity in the first two sacral segments. There are linear clefts in the lateral sacral ala of the first segment bilaterally. Findings are indicative of healing sacral insufficiency fracture and correspond with the pattern seen on bone scintigraphy. Cortical and medullary bone signal intensity are normal in the lumbar vertebrae. There is no evidence to suggest skeletal metastatic disease. The tip of the conus medullaris is normal in position and appearance at T12. There is advanced degenerative spondylosis change. There is a dextroconvex scoliosis. Axial and sagittal images at the L1-2 disc level demonstrate diffuse disc bulging indenting the ventral margin of the thecal sac. No spinal stenosis or focal disc protrusion is seen. L2-3, there is similar diffuse disc bulging. Mild ligamentum flavum hypertrophy is present. At L3-L4, there is moderate diffuse disc bulging effacing the ventral subarachnoid space. Mild ligamentum flavum hypertrophy is present. Canal size is borderline at L3-4. At L4-5, there is diffuse disc bulging. Facet hypertrophy and ligamentum flavum hypertrophy contribute to mild central canal stenosis at L4-5. There is mild bilateral neural foraminal narrowing due to disc bulging and facet hypertrophy. At L5-S1, there is moderate facet hypertrophy and some ligamentum flavum hypertrophy. Diffuse disc bulging is seen without thecal sac compression. There is mild left foraminal narrowing due to facet hypertrophy and disc bulging. Impression: 1. Healing sacral insufficiency fracture bilaterally without evidence of displacement. Extensive abnormal marrow signal. Question previous radiation therapy field. 2. Advanced degenerative spondylosis changes. There is multilevel mild neural foraminal narrowing. There is L4-5 mild central canal stenosis. Electronically Signed by Bari Lockwood MD 09/02/2019 06:41 P
== END ==
LOC: M PLARAD 13:13
PROVIDERS: ATTEND Orthopaedic Surgery
DX: M47.816 Spondylosis without myelopathy or radiculopathy, lumbar region (principal)

== ENCOUNTER → 2019-09-23 | Outpatient (CLI) | payer MEDICARE ==
[2019-09-23 12:12] LABS: HEMATOCRIT 42.6 % (42.0-52.0); HEMOGLOBIN 13.7 g/dl (13.5-17.5); MEAN CORPUSCULAR HEMOGLOBIN 28.6 pg (27.0-33.0); MEAN CORPUSCULAR HGB CONC 32.2 g/dl (32.0-36.5); MEAN CORPUSCULAR VOLUME 88.9 fl (80.0-96.0); PLATELET COUNT, AUTOMATED 171 10^3/uL (150-450); RED BLOOD COUNT 4.79 10^6/uL (4.30-6.10); WHITE BLOOD COUNT 4.5 10^3/uL (4.0-10.0)
[2019-09-23 12:41] LABS: ALBUMIN 3.7 GM/DL (3.2-5.2); ALT/SGPT 38 U/L (12-78); BILIRUBIN,TOTAL 0.5 MG/DL (0.2-1.0); BLOOD UREA NITROGEN 14 MG/DL (7-18); CALCIUM LEVEL 9.3 MG/DL (8.8-10.2); CARBON DIOXIDE LEVEL 28 MEQ/L (21-32); CHLORIDE LEVEL 106 MEQ/L (98-107); CHOLESTEROL LEVEL 148 MG/DL (<200); CHOLESTEROL RISK RATIO 3.441 (<5); CREATININE FOR GFR 0.76 MG/DL (0.70-1.30); GLOMERULAR FILTRATION RATE > 60.0 (>49); GLUCOSE, FASTING 126 MG/DL (70-100); HDL CHOLESTEROL 43 MG/DL (>40); LDL CHOLESTEROL 60 MG/DL (<100); NON-HDL-C 105 MG/DL; POTASSIUM SERUM 4.1 MEQ/L (3.5-5.1); SODIUM LEVEL 143 MEQ/L (136-145); TRIGLYCERIDES LEVEL 227 MG/DL (<150); URIC ACID 2.9 MG/DL (3.5-7.2)
[2019-09-23 12:44] LABS: HEMOGLOBIN A1c 6.7 %
[2019-09-23 12:45] LABS: TOTAL 25(OH) VITAMIN D 41.4 NG/ML (30.0-100.0)
[2019-09-23 12:50] LABS: MALB URINE SIEMENS 21.1 MG/L; MAU/CREAT RATIO 10.6 MCG/MG (0.0-30.0)
== END ==
LOC: M WUC 10:14
PROVIDERS: ATTEND Nurse Practitioner Family
DX: E78.5 Hyperlipidemia, unspecified (principal); K21.9 Gastro-esophageal reflux disease without esophagitis; I10 Essential (primary) hypertension; E55.9 Vitamin D deficiency, unspecified; M10.9 Gout, unspecified; Z79.899 Other long term (current) drug therapy

== ENCOUNTER → 2020-01-03 | Outpatient (CLI) | payer MEDICARE ==
[~2020-01-03] MED LIST changes: +GLUC500C37 PO; +MULTCAP PO; +NEUR300C PO; +TIZA2TAB6 PO; +VITA1CHW7 PO
[2020-01-03 19:16] LABS: BLOOD UREA NITROGEN 16 MG/DL (7-18); CREATININE FOR GFR 0.92 MG/DL (0.70-1.30); GLOMERULAR FILTRATION RATE > 60.0 (>49)
== END ==
LOC: M WUC 14:13
PROVIDERS: ATTEND Orthopaedic Surgery
DX: M84.550D Pathological fracture in neoplastic disease, pelvis, subsequent encounter for fracture with routine healing (principal)

== ENCOUNTER → 2020-01-24 | Outpatient (CLI) | payer MEDICARE ==
--- NOTE | 2020-01-25 10:57 | REP ---
PET/CT: HISTORY: Restaging rectal carcinoma. COMPARISONS: Comparison PET/CT study is from October 05, 2018. Comparison is made with lumbar spine MRI study from January 12, 2020. TECHNIQUE: 61 minutes following the intravenous injection of a 8.58 mCi dose of F-18 FDG, three-dimensional PET scintigraphy is acquired from the skull base to the proximal thighs. Triplanar noncontrast CT scanning is acquired through the same anatomic range for attenuation correction, and image registration with scan parameters optimized to minimize radiation exposure to the patient. PET scintigraphy and CT datasets were fused and displayed on a workstation with multiplanar and projection display capability. PET/CT FINDINGS: Head and neck soft tissues are unremarkable. There is no abnormal hypermetabolic miguel uptake in the mediastinum or in either hilar region. There is no visible pulmonary nodule or abnormal pulmonary parenchymal hypermetabolic uptake. There is no abnormal hypermetabolic uptake in the liver or in abdominal, retroperitoneal, or pelvic lymph nodes. The patient status post abdominoperineal resection. There is a healing sacral insufficiency fracture visible on the second sacral segment and bilaterally in the lateral aspect of the sacrum. There is hypermetabolic uptake associated with this and a typical "H" shaped distribution. Maximum standard uptake value within this healing fracture is from 5.38 to 9.10. This insufficiency fracture as likely related to osteoporosis and postradiation therapy changes. Indeed, the remainder of the sacrum and much of the pelvis show suppressed background marrow uptake compared to lumbar spine and thoracic spine vertebral body uptake. The sacral lesion is not felt to reflect a metastasis. IMPRESSION: There is some hypermetabolic uptake in and about a healing sacral insufficiency fracture likely related to postradiation changes. Otherwise negative PET scintigraphy. There is no evidence of metastatic disease. Electronically Signed by Bari Lockwood MD 01/25/2020 05:12 P
== END ==
LOC: M PLARAD 15:23
PROVIDERS: ATTEND Internal Medicine Hematology & Oncology
DX: C20 Malignant neoplasm of rectum (principal)
CPT/HCPCS: 78815; A9552

== ENCOUNTER → 2020-01-26 | Outpatient (CLI) | payer MEDICARE ==
[~2020-01-26] MED LIST changes: +TIZA1TAB12 PO; -TIZA2TAB6 PO
--- NOTE | 2020-01-30 16:20 | RADONC ---
RADIATION ONCOLOGY CONSULTATION NOTE DATE: 01/26/2020 This is a telemedicine visit. The patient was informed of the risks including security breech, technological failure, inability to perform a comprehensive physical exam which could delay or prevent an accurate diagnosis, and potential complications from treatment decisions rendered over a telemedicine platform. The patient understands and consented to the use of telehealth services phone only. CHART NUMBER: [id number] DIAGNOSIS: Rectal cancer. STAGE: III B, T3, N1, M0, now possibly metastatic. ECOG PERFORMANCE STATUS: Not evaluated. CONSULTATION NOTE: Mr. 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 We initially treated the patient to his rectum for preoperative chemotherapy and radiation for a dose of 4500 cGy delivered in 25 fractions of 180 cGy each from 08/18/2016 through 09/26/2016. This was treated on a linear accelerator utilizing 3-D conformal technique with anterior, posterior left and right lateral estrada. Concomitant chemotherapy with Xeloda was given. The patient subsequently underwent surgical excision and reports that he still has a colostomy. He has done well and has been followed by medical oncology, but recently has been having increased pain in the sacral region. On 08/26/2019, a bone scan was done which showed no evidence to suggest skeletal metastatic disease. There was increased uptake bilaterally in the sacrum in a H-shaped pattern consistent with sacral insufficiency fractures. No bony destructive lesion was seen on the recent CT scan. An MRI of the L-spine and sacrum was done on 09/02/2019, which again showed healing sacral insufficiency fractures. There was no evidence to suggest skeletal metastatic disease. On a repeat MRI done 01/12/2020 at [facility] was said to show extraosseous tumor impingement upon S1 and potentially S2 nerve roots. There was no compressive tumor identified in the lumbar spine. The findings were thought to be consistent with upper sacral osseous metastatic disease. They suspected a pathologic fracture at S2. Extraosseous tumor impingement was again seen at S1 and potentially S2 nerve roots. The patient was seen by Dr. Gallagher and is scheduled for a bone biopsy at interventional radiology on January 31 in order to fully evaluate whether or not we are dealing with metastatic disease. PAST MEDICAL HISTORY: The patient's past medical history is positive for anxiety, asthma, atrial fibrillation, congestive artery disease, diabetes, erectile dysfunction, GERD, gout, hypertension, panic attacks, pelvic fracture after falling in the snow, vitamin D deficiency, and his rectal cancer. In addition, the patient had an appendectomy in 1969. He has had bilateral inguinal hernias as a child. He had cardiac ablation for atrial fibrillation. He had a colonoscopy and a hemorrhoidectomy. He has had a right ureter implant. He had scrotal surgery as a child. ALLERGIES: The patient is allergic to CODEINE. SOCIAL HISTORY: The patient quit smoking in August 2018. 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 FAMILY HISTORY: The patient's family history is positive for a father with skin cancers. REVIEW OF SYSTEMS: The patient's review of systems is positive for anxiety and pain in the sacral region. It is otherwise noncontributory. Denies nausea, vomiting, fevers, chills, night sweats, diplopia, headaches, depression, anorexia, weight loss, visual disturbances, chest pain, urinary or bowel difficulties, bone pain, or neurological problems. PHYSICAL EXAMINATION: Physical exam was deferred as per COVID-19 precautions. ASSESSMENT: At this time, I cannot make an official recommendation. The patient had a bone scan as well as a MRIs done just 3 months ago, which showed sacral insufficiency fractures with no evidence of metastatic disease. He did have that one MRI reading that is being read as consistent with a malignancy. However, a PET/CT scan which was done on 01/24/2020 revealed some hypermetabolic uptake in and about the healing sacral insufficiency fracture most likely related to post radiation changes. The PET scan was negative otherwise, and there was no evidence of metastatic disease. I have personally reviewed this PET scan in detail and the findings to me also do not show anything that looks like metastatic disease. The patient is scheduled for an interventional radiology biopsy on February 01, 2020. I have scheduled the patient to return to me for repeat consultation with the results of that pathology on February 13 at 10 o'clock. At this time, I do not think we are going to be needing radiation for palliation as this would be unlikely place for a metastatic site considering there is no other metastatic disease and this place was highly irradiated. The treatment is somewhat risky considering previous radiation, and unless I am certain that we are dealing with disease here I would not recommend it. I therefore agree with Dr. Gallagher that biopsy will be necessary considering these conflicting reports. Thank you for allowing us to participate in the care of this very pleasant gentleman. As always, warm regards. cc: MD Ron Joshi MD Robert Johnson, MD John D. Nicholson, MD
== END ==
LOC: M ONCR 13:10
PROVIDERS: ATTEND Radiology Radiation Oncology
DX: C21.0 Malignant neoplasm of anus, unspecified (principal)

== ENCOUNTER → 2020-02-01 | Outpatient (CLI) | payer MEDICARE ==
[~2020-02-01] MED LIST changes: +LIDOCAINE 1% MDV 20ML VIAL As Ordered ONE; -TIZA1TAB12 PO; +TIZA2TAB6 PO
[2020-02-01 10:19] VITALS: BP 126/80
--- NOTE | 2020-02-01 19:57 | REP ---
CT-guided sacral mass biopsy The procedure is performed by PONCHO Lauren, under the direct supervision of Dr. Desouza. The risks and benefits of the procedure were explained to the patient and informed consent was obtained both orally and written. Directly prior to the start of the procedure, a formal timeout was done in the exam room. The abnormality in the sacrum was localized using CT guidance. Skin was prepped and draped in the usual sterile fashion. 10 ml of 1% lidocaine 10 mg/ml was used as a local anesthetic. Using CT guidance an 18 gauge coaxial needle biopsy system was inserted and advanced into the area of abnormality. 6 core biopsy samples were obtained and sent to the lab. The patient tolerated the procedure well and was discharged from the department. Reviewed by PONCHO Moore 02/01/2020 01:30 P Electronically Signed by Jimmy Desouza MD 02/01/2020 07:48 P
== END ==
LOC: M IRPRO 08:26
PROVIDERS: ATTEND Internal Medicine Hematology & Oncology
DX: M53.3 Sacrococcygeal disorders, not elsewhere classified (principal)

== ENCOUNTER → 2020-02-14 | Outpatient (CLI) | payer MEDICARE ==
[~2020-02-14] MED LIST changes: -LIDOCAINE 1% MDV 20ML VIAL As Ordered ONE
--- NOTE | 2020-02-22 15:43 | RADONC ---
RADIATION ONCOLOGY TELEMEDICINE VISIT FOLLOWUP NOTE DATE: 02/14/2020 This is a telemedicine visit. The patient was informed of the risks including security breech, technological failure, inability to perform a comprehensive physical exam which could delay or prevent an accurate diagnosis, and potential complications from treatment decisions rendered over a telemedicine platform. The patient understands and consented to the use of telehealth services phone only. CHART NUMBER: [id number] DIAGNOSIS: Rectal cancer. STAGE: III B, T3, N1, M0. ECOG PERFORMANCE STATUS: Not evaluated. FOLLOWUP NOTE: Mr. Cedillo is a very pleasant 69-year-old white male who presented to me on 01/26/2020 with some sacral pain and a question of whether or not there was metastatic disease to that site. A PET scan done 01/24/2020 showed a healing sacral insufficiency fracture. There was some hypermetabolic uptake in and around the healing sacral insufficiency fracture most likely related to post radiation changes. There was no evidence of metastatic disease. For the sake of thoroughness the patient was referred by doctor Ron Gallagher MD for a biopsy of his sacral area. Biopsy was done on 02/01/2020 and showed fragments of fibroadipose tissue and cartilaginous tissue but no evidence of metastatic malignancy was identified. The patient has called us today to discuss these findings and subsequent recommendations. REVIEW OF SYSTEMS: The patient's review of systems at this time continues to be positive for sacral discomfort but is otherwise noncontributory. Denies nausea, vomiting, fevers, chills, night sweats, diplopia, headaches, anxiety or depression, anorexia, weight loss, visual disturbances, chest pain, urinary or bowel difficulties, bone pain, or neurological problems. PHYSICAL EXAMINATION: Physical exam was deferred as per COVID-19 precautions. This was a telephone interview. ASSESSMENT: At this time, there is no evidence of metastatic disease in this patient. I have personally reviewed the PET scan and it does not appear consistent with metastatic disease but actually of possible post radiation change as noted above. In addition, biopsy does not demonstrate any evidence of malignancy. In light of that, I have not recommended any radiation treatments at this point. The patient is scheduled to be followed by his medical oncologist and has a visit scheduled for later today. I have recommended that he continue his routine followup with medical oncology. In addition, the patient has been followed by the orthopedic surgeon, Dr. Grant, and I recommended he continue following with him as well. I will be retiring within the next few weeks and have not set of any followup in my office at this time. I did explain to the patient that there will be a replacement doctor coming and if he has any questions or needs to be seen for any reason to Dr. Aguirre will be available to him. In the meantime, the patient has my cell phone number and the office number here and I will be available for at least to next 4-6 weeks. cc: MD Ron Joshi MD Robert Johnson, MD John D. Nicholson, MD
== END ==
LOC: M ONCR 10:27
PROVIDERS: ATTEND Radiology Radiation Oncology
DX: C21.0 Malignant neoplasm of anus, unspecified (principal); Z92.3 Personal history of irradiation

== ENCOUNTER → 2020-02-28 | Outpatient (CLI) | payer MEDICARE ==
[2020-02-28 17:03] LABS: CHOLESTEROL RISK RATIO 3.386 (<5)
== END ==
LOC: M WUC 11:21
PROVIDERS: ATTEND Physician Assistant
DX: I25.10 Atherosclerotic heart disease of native coronary artery without angina pectoris (principal)

== ENCOUNTER → 2020-03-17 | Outpatient (REF) | payer MEDICARE | LOC: M WUC 09:04 | PROVIDERS: ATTEND Nurse Practitioner Adult Health | DX: N40.1 Benign prostatic hyperplasia with lower urinary tract symptoms (principal) ==

== ENCOUNTER → 2020-03-17 | Outpatient (REF) | payer MEDICARE ==
[2020-04-19 21:56] LABS: HEMOGLOBIN A1c 6.3 %
[2020-04-19 21:57] LABS: CHOLESTEROL RISK RATIO 3.204 (<5); URIC ACID 2.7 MG/DL (3.5-7.2)
== END ==
LOC: M WUC 08:33
PROVIDERS: ATTEND Nurse Practitioner Family
DX: E11.8 Type 2 diabetes mellitus with unspecified complications (principal); E78.5 Hyperlipidemia, unspecified; M10.9 Gout, unspecified; E55.9 Vitamin D deficiency, unspecified; Z79.899 Other long term (current) drug therapy; N40.1 Benign prostatic hyperplasia with lower urinary tract symptoms

== ENCOUNTER → 2020-06-11 | Outpatient (CLI) | payer MEDICARE ==
[2020-06-11 20:08] LABS: HEMATOCRIT 46.4 % (42.0-52.0); HEMOGLOBIN 14.6 g/dl (13.5-17.5); MEAN CORPUSCULAR HEMOGLOBIN 29.3 pg (27.0-33.0); MEAN CORPUSCULAR HGB CONC 31.5 g/dl (32.0-36.5); PLATELET COUNT, AUTOMATED 188 10^3/uL (150-450); RED BLOOD COUNT 4.99 10^6/uL (4.30-6.10); WHITE BLOOD COUNT 4.3 10^3/uL (4.0-10.0)
[2020-06-11 20:35] LABS: ALT/SGPT 42 U/L (12-78); BILIRUBIN,TOTAL 0.6 MG/DL (0.2-1.0); BLOOD UREA NITROGEN 16 MG/DL (7-18); CARBON DIOXIDE LEVEL 29 MEQ/L (21-32); CHLORIDE LEVEL 105 MEQ/L (98-107); CHOLESTEROL LEVEL 153 MG/DL (<200); CHOLESTEROL RISK RATIO 3.122 (<5); CREATININE FOR GFR 0.82 MG/DL (0.70-1.30); GLOMERULAR FILTRATION RATE > 60.0 (>49); GLUCOSE, FASTING 98 MG/DL (70-100); HDL CHOLESTEROL 49 MG/DL (>40); LDL CHOLESTEROL 67 MG/DL (<100); NON-HDL-C 104 MG/DL; POTASSIUM SERUM 4.1 MEQ/L (3.5-5.1); SODIUM LEVEL 139 MEQ/L (136-145); TOTAL PROTEIN 7.5 GM/DL (6.4-8.2); TRIGLYCERIDES LEVEL 186 MG/DL (<150)
[2020-06-11 20:42] LABS: TOTAL 25(OH) VITAMIN D 39.8 NG/ML (30.0-100.0)
[2020-06-11 20:54] LABS: HEMOGLOBIN A1c 6.1 %
[2020-06-11 21:04] LABS: MALB URINE SIEMENS 11.1 MG/L; MAU/CREAT RATIO 7.4 MCG/MG (0.0-30.0)
== END ==
LOC: M WUC 15:31
PROVIDERS: ATTEND Nurse Practitioner Family
DX: E11.9 Type 2 diabetes mellitus without complications (principal); E78.5 Hyperlipidemia, unspecified; F32.9 Major depressive disorder, single episode, unspecified; E55.9 Vitamin D deficiency, unspecified

== ENCOUNTER → 2020-09-14 | Outpatient (CLI) | payer MEDICARE ==
[~2020-09-14] MED LIST changes: +TIZA1TAB12 PO; -TIZA2TAB6 PO
[2020-09-14 16:15] LABS: CHOLESTEROL RISK RATIO 3.312 (<5); URIC ACID 3.2 MG/DL (3.5-7.2)
[2020-09-14 16:22] LABS: TOTAL 25(OH) VITAMIN D 33.4 NG/ML (30.0-100.0)
[2020-09-14 16:39] LABS: HEMOGLOBIN A1c 5.9 %
== END ==
LOC: M WUC 13:42
PROVIDERS: ATTEND Nurse Practitioner Family
DX: M10.9 Gout, unspecified (principal); E55.9 Vitamin D deficiency, unspecified; E78.5 Hyperlipidemia, unspecified; E11.8 Type 2 diabetes mellitus with unspecified complications; Z79.899 Other long term (current) drug therapy

== ENCOUNTER → 2020-12-28 | Outpatient (CLI) | payer MEDICARE ==
[2020-12-28 15:10] LABS: ALBUMIN 3.7 GM/DL (3.2-5.2); ALT/SGPT 43 U/L (12-78); BILIRUBIN,TOTAL 0.6 MG/DL (0.2-1.0); BLOOD UREA NITROGEN 14 MG/DL (7-18); CALCIUM LEVEL 9.3 MG/DL (8.8-10.2); CARBON DIOXIDE LEVEL 26 MEQ/L (21-32); CHLORIDE LEVEL 109 MEQ/L (98-107); CHOLESTEROL LEVEL 145 MG/DL (<200); CHOLESTEROL RISK RATIO 2.959 (<5); GLOMERULAR FILTRATION RATE > 60.0 (>49); GLUCOSE, FASTING 116 MG/DL (70-100); HDL CHOLESTEROL 49 MG/DL (>40); LDL CHOLESTEROL 71 MG/DL (<100); NON-HDL-C 96 MG/DL; POTASSIUM SERUM 3.7 MEQ/L (3.5-5.1); SODIUM LEVEL 141 MEQ/L (136-145); TOTAL PROTEIN 7.4 GM/DL (6.4-8.2); TRIGLYCERIDES LEVEL 123 MG/DL (<150); URIC ACID 2.6 MG/DL (3.5-7.2)
[2020-12-28 15:19] LABS: HEMOGLOBIN A1c 6.5 %; TOTAL 25(OH) VITAMIN D 35.1 NG/ML (30.0-100.0)
== END ==
LOC: M WUC 10:31
PROVIDERS: ATTEND Nurse Practitioner Family
DX: E11.8 Type 2 diabetes mellitus with unspecified complications (principal); I10 Essential (primary) hypertension; E78.5 Hyperlipidemia, unspecified; E55.9 Vitamin D deficiency, unspecified; M10.9 Gout, unspecified

== ENCOUNTER → 2021-03-13 | Outpatient (CLI) | payer MEDICARE ==
[~2021-03-13] MED LIST changes: +OMEP40CA4 PO; -OMEP40CA97 PO
--- NOTE | 2021-03-13 17:22 | REP ---
INDICATION: PAIN IN LEG COMPARISON: None. TECHNIQUE: Real time desouza scale and Duplex Doppler evaluation of the bilateral lower extremity arterial vasculature using linear high frequency transducer. FINDINGS: Desozua scale and duplex doppler images demonstrate moderate diffuse plaquing of the bilateral lower extremity arterial systems. Triphasic and biphasic waveforms are seen through the bilateral popliteal and proximal anterior tibial arteries. Monophasic waveforms are noted in the bilateral tibioperoneal trunks and posterior tibial arteries as well as in the bilateral anterior tibial arteries. There is no compelling duplex Doppler sonographic evidence of hemodynamically significant stenosis in the bilateral lower extremity arterial systems. Peak systolic velocities (cm/sec) Common femoral artery: Right 138; Left 192 Profunda femoris: Right 106; Left 143 SFA (proximal): Right 148; Left 139 SFA (mid): Right 103; Left 119 SFA (distal): Right 103; Left 113 Popliteal artery: Right 116; Left 93 LUCAS (prox.): Right 65; Left 53 Tibioperoneal trunk: Right 84; Left 58 LEARNING TECHNOLOGIST (prox.): Right 80; Left 48 LEARNING TECHNOLOGIST (distal): Right 135; Left 109 LUCAS (distal): Right 76; Left 72 IMPRESSION: Moderate diffuse plaquing bilaterally with no compelling duplex Doppler sonographic evidence of hemodynamically significant stenosis. <Electronically signed by Jimmy Desouza > 03/13/21 [id number]
== END ==
LOC: M RAD 15:55
PROVIDERS: ATTEND Physician Assistant
DX: M79.606 Pain in leg, unspecified (principal); I77.1 Stricture of artery

== ENCOUNTER → 2021-04-08 | Outpatient (CLI) | payer MEDICARE ==
[2021-04-08 19:36] LABS: HEMOGLOBIN A1c 6.2 %
== END ==
LOC: M WUC 10:50
PROVIDERS: ATTEND Nurse Practitioner Family
DX: M10.9 Gout, unspecified (principal); E11.8 Type 2 diabetes mellitus with unspecified complications

== ENCOUNTER → 2021-10-15 | Outpatient (CLI) | payer MEDICARE ==
[2021-10-15 12:37] LABS: BASO % 0.5 % (0.0-1.0); EOS # 0.2 10^3/uL (0.0-0.5); EOS % 2.5 % (0.0-3.0); HEMATOCRIT 46.4 % (42.0-52.0); LYMPH % 14.9 % (24.0-44.0); MEAN CORPUSCULAR HEMOGLOBIN 27.3 pg (27.0-33.0); MEAN CORPUSCULAR HGB CONC 32.3 g/dl (32.0-36.5); MEAN CORPUSCULAR VOLUME 84.4 fl (80.0-96.0); MONO # 0.6 10^3/uL (0.0-0.8); MONO % 9.2 % (2.0-8.0); NEUTROPHILS # 4.7 10^3/uL (1.5-8.5); NEUTROPHILS % 72.7 % (36.0-66.0); PLATELET COUNT, AUTOMATED 206 10^3/uL (150-450); WHITE BLOOD COUNT 6.4 10^3/uL (4.0-10.0)
[2021-10-15 13:09] LABS: HEMOGLOBIN A1c 6.4 %
[2021-10-15 13:15] LABS: ALBUMIN 3.7 GM/DL (3.2-5.2); ALT/SGPT 48 U/L (12-78); BILIRUBIN,TOTAL 0.6 MG/DL (0.2-1.0); BLOOD UREA NITROGEN 22 MG/DL (7-18); CALCIUM LEVEL 9.7 MG/DL (8.8-10.2); CARBON DIOXIDE LEVEL 30 MEQ/L (21-32); CHLORIDE LEVEL 107 MEQ/L (98-107); CHOLESTEROL LEVEL 161 MG/DL (<200); CHOLESTEROL RISK RATIO 3.354 (<5); CREATININE FOR GFR 0.99 MG/DL (0.70-1.30); FREE T4 1.02 NG/DL (0.76-1.46); GLOMERULAR FILTRATION RATE > 60.0 (>42); GLUCOSE, FASTING 122 MG/DL (70-100); HDL CHOLESTEROL 48 MG/DL (>40); LDL CHOLESTEROL 79 MG/DL (<100); NON-HDL-C 113 MG/DL; POTASSIUM SERUM 4.2 MEQ/L (3.5-5.1); SODIUM LEVEL 141 MEQ/L (136-145); TRIGLYCERIDES LEVEL 172 MG/DL (<150); URIC ACID 5.2 MG/DL (3.5-7.2)
== END ==
LOC: M WUC 10:38
PROVIDERS: ATTEND Nurse Practitioner Family
DX: E55.9 Vitamin D deficiency, unspecified (principal); M10.9 Gout, unspecified; I10 Essential (primary) hypertension; K21.9 Gastro-esophageal reflux disease without esophagitis; R73.03 Prediabetes

== ENCOUNTER → 2021-10-15 | Outpatient (CLI) | payer MEDICARE ==
[2021-10-15 12:36] LABS: BASO % 0.5 % (0.0-1.0); EOS # 0.2 10^3/uL (0.0-0.5); EOS % 2.4 % (0.0-3.0); HEMATOCRIT 45.8 % (42.0-52.0); HEMOGLOBIN 14.9 g/dl (13.5-17.5); LYMPH # 0.9 10^3/uL (1.5-5.0); LYMPH % 14.8 % (24.0-44.0); MEAN CORPUSCULAR HEMOGLOBIN 27.5 pg (27.0-33.0); MEAN CORPUSCULAR HGB CONC 32.5 g/dl (32.0-36.5); MEAN CORPUSCULAR VOLUME 84.5 fl (80.0-96.0); MONO # 0.6 10^3/uL (0.0-0.8); NEUTROPHILS # 4.5 10^3/uL (1.5-8.5); PLATELET COUNT, AUTOMATED 203 10^3/uL (150-450); RED BLOOD COUNT 5.42 10^6/uL (4.30-6.10); WHITE BLOOD COUNT 6.2 10^3/uL (4.0-10.0)
[2021-10-15 13:03] LABS: ERYTHROCYTE SEDIMENTATION RATE 9 mm/hr (0-20)
[2021-10-15 13:14] LABS: ALBUMIN 3.6 GM/DL (3.2-5.2); ALT/SGPT 47 U/L (12-78); BILIRUBIN,TOTAL 0.6 MG/DL (0.2-1.0); BLOOD UREA NITROGEN 21 MG/DL (7-18); CALCIUM LEVEL 9.7 MG/DL (8.8-10.2); CARBON DIOXIDE LEVEL 30 MEQ/L (21-32); CHLORIDE LEVEL 107 MEQ/L (98-107); CREATININE FOR GFR 0.98 MG/DL (0.70-1.30); GLOMERULAR FILTRATION RATE > 60.0 (>42); GLUCOSE, FASTING 125 MG/DL (70-100); POTASSIUM SERUM 4.3 MEQ/L (3.5-5.1); RHEUMATOID FACTOR QUANT < 10.0 IU/ML (<15.0); SODIUM LEVEL 140 MEQ/L (136-145); TOTAL PROTEIN 7.1 GM/DL (6.4-8.2)
[2021-10-15 13:19] LABS: FOLATE > 24.0 NG/ML; VITAMIN B12 LEVEL 641 PG/ML
[2021-10-16 11:40] LABS: ALBUMIN % 54.9 % (55.8-66.1); ALPHA-1-GLOBULIN % 4.6 % (2.9-4.9); ALPHA-1-GLOBULINS 0.33 GM/DL (0.17-0.41); ALPHA-2-GLOBULINS 0.99 GM/DL (0.42-0.99); ALPHA-2-GLOBULINS % 13.9 % (7.1-11.8); BETA-2-GLOBULINS 0.38 GM/DL (0.19-0.55)
[2021-10-16 11:41] LABS: BETA-2-GLOBULINS % 5.3 % (3.2-6.5); GAMMA GLOBULIN % 14.3 % (11.1-18.8); GAMMA GLOBULINS 1.02 GM/DL (0.65-1.58)
== END ==
LOC: M WUC 10:33
PROVIDERS: ATTEND Psychiatry & Neurology Neurology
DX: R25.1 Tremor, unspecified (principal); E55.9 Vitamin D deficiency, unspecified; M10.9 Gout, unspecified; I10 Essential (primary) hypertension; K21.9 Gastro-esophageal reflux disease without esophagitis; R73.03 Prediabetes

== ENCOUNTER → 2022-04-10 | Outpatient (REF) | payer MEDICARE ==
[~2022-04-10] MED LIST changes: +CITRTAB18 PO; +LOPI600T PO; +MULT-90 PO
[2022-04-10 17:33] LABS: BASO % 0.4 % (0.0-1.0); EOS # 0.3 10^3/uL (0.0-0.5); EOS % 5.3 % (0.0-3.0); HEMATOCRIT 44.6 % (42.0-52.0); HEMOGLOBIN 14.3 g/dl (13.5-17.5); LYMPH # 1.1 10^3/uL (1.5-5.0); LYMPH % 20.8 % (24.0-44.0); MEAN CORPUSCULAR HEMOGLOBIN 28.9 pg (27.0-33.0); MEAN CORPUSCULAR HGB CONC 32.1 g/dl (32.0-36.5); MEAN CORPUSCULAR VOLUME 90.3 fl (80.0-96.0); MONO # 0.5 10^3/uL (0.0-0.8); MONO % 8.7 % (2.0-8.0); NEUTROPHILS # 3.4 10^3/uL (1.5-8.5); NEUTROPHILS % 64.4 % (36.0-66.0); PLATELET COUNT, AUTOMATED 212 10^3/uL (150-450); RED BLOOD COUNT 4.94 10^6/uL (4.30-6.10); WHITE BLOOD COUNT 5.3 10^3/uL (4.0-10.0)
[2022-04-10 18:15] LABS: BLOOD UREA NITROGEN 9 MG/DL (7-18); CARBON DIOXIDE LEVEL 27 MEQ/L (21-32); CHLORIDE LEVEL 105 MEQ/L (98-107); CREATININE FOR GFR 0.69 MG/DL (0.70-1.30); GLOMERULAR FILTRATION RATE > 60.0 (>42); GLUCOSE, FASTING 100 MG/DL (70-100); POTASSIUM SERUM 3.8 MEQ/L (3.5-5.1); SODIUM LEVEL 140 MEQ/L (136-145)
[2022-04-10 18:16] LABS: ALBUMIN 3.6 GM/DL (3.2-5.2); ALT/SGPT 33 U/L (12-78); BILIRUBIN,TOTAL 0.6 MG/DL (0.2-1.0); CHOLESTEROL LEVEL 138 MG/DL (<200); FREE T4 0.98 NG/DL (0.76-1.46); HDL CHOLESTEROL 46 MG/DL (>40); LDL CHOLESTEROL 67 MG/DL (<100); NON-HDL-C 92 MG/DL; THYROID STIMULATING HORMONE 0.618 uIU/ML (0.358-3.740); TOTAL PROTEIN 7.1 GM/DL (6.4-8.2); TRIGLYCERIDES LEVEL 125 MG/DL (<150)
[2022-04-10 19:26] LABS: HEMOGLOBIN A1c 6.2 %
== END ==
LOC: M LABWUC 16:07
PROVIDERS: ATTEND Nurse Practitioner Family
DX: E55.9 Vitamin D deficiency, unspecified (principal); I10 Essential (primary) hypertension; K21.9 Gastro-esophageal reflux disease without esophagitis; R73.03 Prediabetes; M10.9 Gout, unspecified

== ENCOUNTER → 2022-06-02 | Outpatient (CLI) | payer MEDICARE ==
[~2022-06-02] MED LIST changes: +GASTROGRAFIN SOLUTION 30ML (Q9963) As Ordered ONE; +ISOVUE-370 76% 100ML VIAL As Ordered ONE
== END ==
LOC: M RAD 08:32
PROVIDERS: ATTEND Physical Medicine & Rehabilitation Pain Medicine
DX: C20 Malignant neoplasm of rectum (principal)
CPT/HCPCS: 71260; 74177; Q9963; Q9967

== ENCOUNTER → 2022-09-05 | Outpatient (CLI) | payer MEDICARE ==
[~2022-09-05] MED LIST changes: -GASTROGRAFIN SOLUTION 30ML (Q9963) As Ordered ONE; -ISOVUE-370 76% 100ML VIAL As Ordered ONE; +LEVO1TAB40 PO; +ROPI0.5T3 PO
[2022-09-05 17:13] LABS: BASO % 0.6 % (0.0-1.0); EOS # 0.2 10^3/uL (0.0-0.5); EOS % 3.2 % (0.0-3.0); HEMATOCRIT 44.6 % (42.0-52.0); HEMOGLOBIN 14.3 g/dl (13.5-17.5); LYMPH # 0.9 10^3/uL (1.5-5.0); LYMPH % 14.6 % (24.0-44.0); MEAN CORPUSCULAR HEMOGLOBIN 27.8 pg (27.0-33.0); MEAN CORPUSCULAR HGB CONC 32.1 g/dl (32.0-36.5); MEAN CORPUSCULAR VOLUME 86.6 fl (80.0-96.0); MONO # 0.5 10^3/uL (0.0-0.8); MONO % 8.6 % (2.0-8.0); NEUTROPHILS # 4.5 10^3/uL (1.5-8.5); NEUTROPHILS % 72.7 % (36.0-66.0); PLATELET COUNT, AUTOMATED 187 10^3/uL (150-450); RED BLOOD COUNT 5.15 10^6/uL (4.30-6.10); WHITE BLOOD COUNT 6.2 10^3/uL (4.0-10.0)
[2022-09-05 17:33] LABS: ALBUMIN 3.6 G/DL (3.2-5.2); ALKALINE PHOSPHATASE 115 U/L (46-116); ALT/SGPT 41 U/L (7.0-40); AST/SGOT 32 U/L (<34); BILIRUBIN,TOTAL 0.7 MG/DL (0.3-1.2); BLOOD UREA NITROGEN 14 MG/DL (9-23); CALCIUM LEVEL 9.2 MG/DL (8.3-10.6); CARBON DIOXIDE LEVEL 30 MMOL/L (20-31); CHLORIDE LEVEL 102 MMOL/L (98-107); CREATININE FOR GFR 0.72 MG/DL (0.70-1.30); GLOMERULAR FILTRATION RATE > 60.0 (>42); GLUCOSE, FASTING 105 MG/DL (74-106); SODIUM LEVEL 138 MMOL/L (136-145); TOTAL PROTEIN 7.2 G/DL (5.7-8.2)
== END ==
LOC: M WUC 11:40
PROVIDERS: ATTEND Specialist
DX: C20 Malignant neoplasm of rectum (principal)

== ENCOUNTER → 2022-09-16 | Outpatient (CLI) | payer MEDICARE ==
[~2022-09-16] MED LIST changes: +ISOVUE-370 76% 100ML VIAL As Ordered ONE
== END ==
LOC: M RAD 12:47
PROVIDERS: ATTEND Specialist
DX: C18.9 Malignant neoplasm of colon, unspecified (principal)
CPT/HCPCS: 71260; Q9967

== ENCOUNTER → 2022-10-10 | Outpatient (CLI) | payer MEDICARE ==
[~2022-10-10] MED LIST changes: -ISOVUE-370 76% 100ML VIAL As Ordered ONE
[2022-10-10 16:32] LABS: ALBUMIN 3.6 G/DL (3.2-5.2); ALKALINE PHOSPHATASE 110 U/L (46-116); ALT/SGPT 44 U/L (7.0-40); AST/SGOT 30 U/L (<34); BILIRUBIN,TOTAL 0.6 MG/DL (0.3-1.2); BLOOD UREA NITROGEN 12 MG/DL (9-23); CALCIUM LEVEL 8.8 MG/DL (8.3-10.6); CARBON DIOXIDE LEVEL 30 MMOL/L (20-31); CHLORIDE LEVEL 102 MMOL/L (98-107); CREATININE FOR GFR 0.68 MG/DL (0.70-1.30); FREE T4 1.03 NG/DL (0.89-1.76); GLOMERULAR FILTRATION RATE > 60.0 (>42); GLUCOSE, FASTING 106 MG/DL (74-106); SODIUM LEVEL 139 MMOL/L (136-145); THYROID STIMULATING HORMONE 0.871 uIU/ML (0.55-4.78); TOTAL 25(OH) VITAMIN D 37.5 NG/ML (20.0-100.0); TOTAL PROTEIN 7.3 G/DL (5.7-8.2)
[2022-10-10 17:32] LABS: HEMOGLOBIN A1c 6.2 % (4.0-6.0)
== END ==
LOC: M WUC 14:06
PROVIDERS: ATTEND Nurse Practitioner Family
DX: E55.9 Vitamin D deficiency, unspecified (principal); K21.9 Gastro-esophageal reflux disease without esophagitis; I10 Essential (primary) hypertension; C20 Malignant neoplasm of rectum; J45.909 Unspecified asthma, uncomplicated; F41.9 Anxiety disorder, unspecified; M10.9 Gout, unspecified; R73.03 Prediabetes; I48.91 Unspecified atrial fibrillation; R53.1 Weakness; Z79.899 Other long term (current) drug therapy

== ENCOUNTER → 2023-04-17 | Outpatient (CLI) | payer MEDICARE ==
[~2023-04-17] MED LIST changes: +FLUT22IN INH; +OMEP-173 PO; -ROPI0.5T3 PO; +ROPI0.5T33 PO
[2023-04-17 20:19] LABS: URIC ACID 4.4 MG/DL (3.7-9.2)
[2023-04-17 20:23] LABS: ALBUMIN 3.7 G/DL (3.2-5.2); ALKALINE PHOSPHATASE 110 U/L (46-116); ALT/SGPT 37 U/L (7.0-40); AST/SGOT 24 U/L (<34); BILIRUBIN,TOTAL 0.8 MG/DL (0.3-1.2); BLOOD UREA NITROGEN 16 MG/DL (9-23); CALCIUM LEVEL 9.6 MG/DL (8.3-10.6); CARBON DIOXIDE LEVEL 27 MMOL/L (20-31); CHLORIDE LEVEL 103 MMOL/L (98-107); CREATININE FOR GFR 0.68 MG/DL (0.70-1.30); GLOMERULAR FILTRATION RATE > 60.0 (>42); GLUCOSE, FASTING 101 MG/DL (74-106); POTASSIUM SERUM 3.7 MMOL/L (3.5-5.1); SODIUM LEVEL 139 MMOL/L (136-145); TOTAL PROTEIN 7.4 G/DL (5.7-8.2)
[2023-04-17 20:49] LABS: HEMOGLOBIN A1c 6.2 % (4.0-6.0)
== END ==
LOC: M WUC 12:50
PROVIDERS: ATTEND Nurse Practitioner Family
DX: R73.03 Prediabetes (principal); M10.9 Gout, unspecified

== ENCOUNTER 2023-08-11 21:43 | Inpatient (IN) | payer MEDICARE ==
[~2023-08-11] VITALS: Ht 175.3 cm; Wt 96.3 kg
[2023-08-11 22:47] LABS: BASO % 0.2 % (0.0-1.0); EOS # 0.2 10^3/uL (0.0-0.5); EOS % 4.7 % (0.0-3.0); HEMATOCRIT 39.6 % (42.0-52.0); HEMOGLOBIN 13.2 g/dl (13.5-17.5); LYMPH # 0.7 10^3/uL (1.5-5.0); MEAN CORPUSCULAR HEMOGLOBIN 29.6 pg (27.0-33.0); MEAN CORPUSCULAR HGB CONC 33.3 g/dl (32.0-36.5); MEAN CORPUSCULAR VOLUME 88.8 fl (80.0-96.0); MONO # 0.4 10^3/uL (0.0-0.8); MONO % 8.7 % (2.0-8.0); NEUTROPHILS # 2.7 10^3/uL (1.5-8.5); NEUTROPHILS % 68.2 % (36.0-66.0); PLATELET COUNT, AUTOMATED 168 10^3/uL (150-450); RED BLOOD COUNT 4.46 10^6/uL (4.30-6.10)
[2023-08-11 23:13] LABS: URIC ACID 4.3 MG/DL (3.7-9.2)
[2023-08-11 23:15] LABS: ETHYL ALCOHOL (ETHANOL) < 0.003 % (0.000-0.010)
[2023-08-11 23:17] LABS: ALBUMIN 3.4 G/DL (3.2-5.2); ALKALINE PHOSPHATASE 119 U/L (46-116); ALT/SGPT 37 U/L (7.0-40); AST/SGOT 30 U/L (<34); BILIRUBIN,DIRECT 0.2 MG/DL (<0.4); BILIRUBIN,TOTAL 0.5 MG/DL (0.3-1.2); BLOOD UREA NITROGEN 10 MG/DL (9-23); CALCIUM LEVEL 8.9 MG/DL (8.3-10.6); CARBON DIOXIDE LEVEL 28 MMOL/L (20-31); CHLORIDE LEVEL 107 MMOL/L (98-107); CK-MB VALUE MASS 2.1 NG/ML (<3.6); CPK CREATINE PHOSPHOKINASE 114 U/L (46-171); CREATININE FOR GFR 0.64 MG/DL (0.70-1.30); GLOMERULAR FILTRATION RATE > 60.0 (>42); GLUCOSE, FASTING 111 MG/DL (74-106); MB/CK RELATIVE INDEX 1.84 (< OR =4); POTASSIUM SERUM 3.3 MMOL/L (3.5-5.1); SODIUM LEVEL 140 MMOL/L (136-145); TOTAL PROTEIN 7.2 G/DL (5.7-8.2)
[2023-08-11 23:19] LABS: THYROID STIMULATING HORMONE 1.196 uIU/ML (0.55-4.78)
[2023-08-12 00:50] LABS: AMPHETAMINES LEVEL URINE NEGATIVE (NEGATIVE); BARBITURATES URINE NEGATIVE (NEGATIVE); BENZODIAZEPINES URINE NEGATIVE (NEGATIVE); CANNABINOIDS URINE NEGATIVE (NEGATIVE); COCAINE METABOLITE URINE NEGATIVE (NEGATIVE); METHADONE URINE NEGATIVE (NEGATIVE); OPIATES URINE NEGATIVE (NEGATIVE); PHENCYCLIDINE URINE NEGATIVE (NEGATIVE)
[2023-08-12] MEDS ORDERED: BUSP15TA47 PO (02:23)
[2023-08-12] MEDS ORDERED: ALLO300T2 PO (02:23)
[2023-08-12] MEDS ORDERED: OMEP1CAP73 PO (02:23)
[2023-08-12] MEDS ORDERED: ROPI0.5T32 PO (02:23)
[2023-08-12] MEDS ORDERED: LOPI600T PO (02:23)
[2023-08-12] MEDS ORDERED: VITMTA PO (02:23)
[2023-08-12] MEDS ORDERED: ATOR80TA59 PO (02:23)
[2023-08-12] MEDS ORDERED: HOME MED LIST COMPLETE! XX SCH (02:25)
[2023-08-12 02:52] LABS: ABG BASE EXCESS -0.7 (-2.0-2.0); ABG O2 SATURATION 96.1 % (95.0-99.0); ABG PARTIAL PRESSURE CO2 35.1 mmHg (35.0-45.0); ABG PARTIAL PRESSURE O2 85.2 mmHg (75.0-100.0); ABG STANDARD HCO3 23.9 MMOL/L. (22.0-26.0); ABG TOTAL CO2 24.1 MMOL/L (23.0-31.0); ABG pH (ARTERIAL) 7.434 UNITS (7.350-7.450)
[2023-08-12] MEDS ORDERED: IPRATROPIUM 0.5MG/ALBUTEROL 2.5MG INH SOL UD 3ML (DUONEB) NEB PRN (04:00)
[2023-08-12 05:00] LABS: INR 1.3; PROTHROMBIN TIME 15.8 SECONDS (12.5-14.5)
[2023-08-12] MEDS ORDERED: REMDESIVIR 200 MG in NS 250 ML IV ONE (05:00)
[2023-08-12 05:03] LABS: D-DIMER QUANT 0.33 ug/mL (<0.5)
[2023-08-12 05:06] LABS: MAGNESIUM LEVEL 1.9 MG/DL (1.8-2.4)
[2023-08-12 05:07] LABS: LDH LACTATE DEHYDROGENASE 183 U/L (120-246)
[2023-08-12 05:10] LABS: FERRITIN 41.6 NG/ML (10.5-307.3)
[2023-08-12 05:20] LABS: PROCALCITONIN <0.04 ng/ml
[2023-08-12] MEDS: FLUTICASONE HFA 220 MCG 12 GM INHALER (FLOVENT) INH SCH ×2 (08:00→21:39)
[2023-08-12] MEDS: APIXABAN 5 MG TAB (ELIQUIS) PO SCH ×3 (08:06→20:32)
[2023-08-12] MEDS: OMEPRAZOLE 20MG CAP PO SCH ×2 (08:06→08:26)
[2023-08-12] MEDS: allopurinoL 300 MG TAB PO SCH ×2 (08:06→08:27)
[2023-08-12] MEDS: CETIRIZINE (ZyrTEC) 10 MG TAB PO SCH ×2 (08:06→08:27)
[2023-08-12] MEDS: busPIRone 5 MG TAB PO SCH ×3 (08:06→20:32)
[2023-08-12] MEDS: VITAMIN D 1,000 INTERNATIONAL UNITS TABLET PO SCH ×2 (08:06→08:26)
[2023-08-12] MEDS: atenoloL 50 MG TAB PO SCH ×2 (08:06→08:26)
[2023-08-12] MEDS: AUGMENTIN 875 MG TAB PO SCH ×2 (08:06→08:25)
[2023-08-12] MEDS: rOPINIRole 0.25 MG TAB(REQUIP) PO SCH ×3 (08:26→20:32)
[2023-08-12] MEDS: FLUTICASONE PROP 0.05% NASAL SPRAY 16 GM (FLONASE) NARES SCH ×2 (08:27→21:00)
[2023-08-12] MEDS ORDERED: LORazepam 0.5 MG TAB PO PRN (09:55)
[2023-08-12 11:14] LABS: PROCALCITONIN <0.04 ng/ml
[2023-08-12] MEDS ORDERED: POTASSIUM CHLORIDE 10MEQ SR TABLET PO ONE (12:00)
[2023-08-12 12:11] LABS: CHOLESTEROL LEVEL 129 MG/DL (<200); CHOLESTEROL RISK RATIO 3.17 (<5); HDL CHOLESTEROL 40.6 MG/DL (>40); LDL CHOLESTEROL 73.8 MG/DL (<100); NON-HDL-C 88.4 MG/DL; TRIGLYCERIDES LEVEL 73 MG/DL (<150)
[2023-08-12 12:15] VITALS: BP 124/76; TEMP 98.8; O2SAT 92
[2023-08-12 12:33] LABS: THYROID STIMULATING HORMONE 1.345 uIU/ML (0.55-4.78)
[2023-08-12 13:31] VITALS: O2SAT 95
[2023-08-12 14:00] VITALS: BP 137/82; TEMP 99.3; O2SAT 89
[2023-08-12] MEDS: RAMELTEON 8 MG TAB (ROZEREM) PO SCH (20:31)
[2023-08-12] MEDS: ATORVASTATIN 20 MG TAB PO SCH (20:32)
[2023-08-12] MEDS: MULTIVITAMINS/MINERALS THERAP 1 TAB PO SCH (20:32)
[2023-08-12 22:00] VITALS: BP 157/78; TEMP 98.1; O2SAT 93
[2023-08-12] MEDS: CO-ENZYME Q10 50 MG CAP PO SCH (22:50)
[2023-08-13 04:58] VITALS: BP 124/66; TEMP 98.6; O2SAT 91
[2023-08-13] MEDS ORDERED: REMDESIVIR 100 MG in NS 250 ML IV SCH (05:00)
[2023-08-13 05:59] LABS: HEMATOCRIT 39.1 % (42.0-52.0); HEMOGLOBIN 13.2 g/dl (13.5-17.5); MEAN CORPUSCULAR HEMOGLOBIN 29.7 pg (27.0-33.0); MEAN CORPUSCULAR HGB CONC 33.8 g/dl (32.0-36.5); MEAN CORPUSCULAR VOLUME 87.9 fl (80.0-96.0); PLATELET COUNT, AUTOMATED 156 10^3/uL (150-450); RED BLOOD COUNT 4.45 10^6/uL (4.30-6.10); WHITE BLOOD COUNT 3.4 10^3/uL (4.0-10.0)
[2023-08-13 06:26] LABS: ALBUMIN 3.1 G/DL (3.2-5.2); ALKALINE PHOSPHATASE 109 U/L (46-116); ALT/SGPT 30 U/L (7.0-40); AST/SGOT 32 U/L (<34); BILIRUBIN,DIRECT 0.3 MG/DL (<0.4); BILIRUBIN,TOTAL 0.7 MG/DL (0.3-1.2); BLOOD UREA NITROGEN 12 MG/DL (9-23); CALCIUM LEVEL 8.7 MG/DL (8.3-10.6); CARBON DIOXIDE LEVEL 27 MMOL/L (20-31); CHLORIDE LEVEL 106 MMOL/L (98-107); CREATININE FOR GFR 0.56 MG/DL (0.70-1.30); GLOMERULAR FILTRATION RATE > 60.0 (>42); GLUCOSE, FASTING 110 MG/DL (74-106); POTASSIUM SERUM 3.7 MMOL/L (3.5-5.1); SODIUM LEVEL 139 MMOL/L (136-145); TOTAL PROTEIN 6.4 G/DL (5.7-8.2)
[2023-08-13] MEDS: FLUTICASONE HFA 220 MCG 12 GM INHALER (FLOVENT) INH SCH ×2 (07:56→19:55)
[2023-08-13] MEDS: FLUTICASONE PROP 0.05% NASAL SPRAY 16 GM (FLONASE) NARES SCH ×2 (09:00→20:16)
[2023-08-13] MEDS: OMEPRAZOLE 20MG CAP PO SCH (09:15)
[2023-08-13] MEDS: VITAMIN D 1,000 INTERNATIONAL UNITS TABLET PO SCH (09:15)
[2023-08-13] MEDS: rOPINIRole 0.25 MG TAB(REQUIP) PO SCH (09:15)
[2023-08-13] MEDS: allopurinoL 300 MG TAB PO SCH (09:15)
[2023-08-13] MEDS: busPIRone 5 MG TAB PO SCH ×2 (09:15→20:14)
[2023-08-13] MEDS: atenoloL 50 MG TAB PO SCH (09:24)
[2023-08-13] MEDS: APIXABAN 5 MG TAB (ELIQUIS) PO SCH ×2 (09:24→20:15)
[2023-08-13] MEDS: CETIRIZINE (ZyrTEC) 10 MG TAB PO SCH (09:24)
[2023-08-13 15:00] VITALS: BP 90/60; TEMP 98.1; O2SAT 92
[2023-08-13] MEDS: SINEMET 12.5MG/50MG PER 1/2 TABLET PO SCH ×2 (17:50→20:15)
[2023-08-13 19:44] VITALS: BP 100/62; TEMP 97.9; O2SAT 91
[2023-08-13] MEDS: CO-ENZYME Q10 50 MG CAP PO SCH (20:14)
[2023-08-13] MEDS: ATORVASTATIN 20 MG TAB PO SCH (20:14)
[2023-08-13] MEDS: MULTIVITAMINS/MINERALS THERAP 1 TAB PO SCH (20:15)
[2023-08-13] MEDS: RAMELTEON 8 MG TAB (ROZEREM) PO SCH (20:15)
[2023-08-14] MEDS: ACETAMINOPHEN TAB 650MG DOSE (2X325MG) PO PRN ×2 (03:18→18:04)
[2023-08-14 05:58] LABS: HEMATOCRIT 39.1 % (42.0-52.0); HEMOGLOBIN 13.1 g/dl (13.5-17.5); MEAN CORPUSCULAR HEMOGLOBIN 29.2 pg (27.0-33.0); MEAN CORPUSCULAR HGB CONC 33.5 g/dl (32.0-36.5); MEAN CORPUSCULAR VOLUME 87.3 fl (80.0-96.0); PLATELET COUNT, AUTOMATED 154 10^3/uL (150-450); RED BLOOD COUNT 4.48 10^6/uL (4.30-6.10); WHITE BLOOD COUNT 4.1 10^3/uL (4.0-10.0)
[2023-08-14 06:20] LABS: BLOOD UREA NITROGEN 13 MG/DL (9-23); CALCIUM LEVEL 8.3 MG/DL (8.3-10.6); CARBON DIOXIDE LEVEL 26 MMOL/L (20-31); CHLORIDE LEVEL 108 MMOL/L (98-107); CREATININE FOR GFR 0.63 MG/DL (0.70-1.30); GLOMERULAR FILTRATION RATE > 60.0 (>42); GLUCOSE, FASTING 122 MG/DL (74-106); POTASSIUM SERUM 3.7 MMOL/L (3.5-5.1); SODIUM LEVEL 142 MMOL/L (136-145)
[2023-08-14 06:43] VITALS: BP 128/79; TEMP 98.6; O2SAT 95
[2023-08-14] MEDS ORDERED: SENNA 8.6 MG TAB (SENOKOT) PO PRN (07:50)
[2023-08-14] MEDS: FLUTICASONE HFA 220 MCG 12 GM INHALER (FLOVENT) INH SCH ×2 (08:00→19:22)
[2023-08-14] MEDS: FLUTICASONE PROP 0.05% NASAL SPRAY 16 GM (FLONASE) NARES SCH ×2 (09:00→21:00)
[2023-08-14] MEDS: SINEMET 12.5MG/50MG PER 1/2 TABLET PO SCH ×4 (09:07→22:43)
[2023-08-14] MEDS: busPIRone 5 MG TAB PO SCH ×3 (09:07→20:50)
[2023-08-14] MEDS: MYCOLOG CREAM 15GM (NYSTATIN/TRIAMCINOLONE) TOP SCH ×3 (09:07→20:48)
[2023-08-14] MEDS: atenoloL 50 MG TAB PO SCH ×2 (09:08→10:58)
[2023-08-14] MEDS: VITAMIN D 1,000 INTERNATIONAL UNITS TABLET PO SCH ×2 (09:08→10:58)
[2023-08-14] MEDS: APIXABAN 5 MG TAB (ELIQUIS) PO SCH ×3 (09:08→20:50)
[2023-08-14] MEDS: allopurinoL 300 MG TAB PO SCH ×2 (09:09→10:59)
[2023-08-14] MEDS: CETIRIZINE (ZyrTEC) 10 MG TAB PO SCH ×2 (09:09→11:00)
[2023-08-14] MEDS: OMEPRAZOLE 20MG CAP PO SCH ×2 (09:09→10:58)
[2023-08-14] MEDS: MIRALAX *UNIT DOSE* 17GM PACKET PO SCH ×3 (09:10→20:48)
[2023-08-14] MEDS: METAMUCIL (PSYLLIUM) PACKET PO SCH ×3 (09:11→20:56)
[2023-08-14 14:00] VITALS: BP 107/75; TEMP 98.2; O2SAT 92
[2023-08-14] MEDS: RAMELTEON 8 MG TAB (ROZEREM) PO SCH (20:48)
[2023-08-14] MEDS: ATORVASTATIN 20 MG TAB PO SCH (20:49)
[2023-08-14] MEDS: MULTIVITAMINS/MINERALS THERAP 1 TAB PO SCH (20:50)
[2023-08-14] MEDS: CO-ENZYME Q10 50 MG CAP PO SCH (20:56)
[2023-08-15 05:49] VITALS: BP 112/75; TEMP 98.2; O2SAT 94
[2023-08-15 06:54] LABS: HEMATOCRIT 42.8 % (42.0-52.0); HEMOGLOBIN 14.4 g/dl (13.5-17.5); MEAN CORPUSCULAR HEMOGLOBIN 29.4 pg (27.0-33.0); MEAN CORPUSCULAR HGB CONC 33.6 g/dl (32.0-36.5); MEAN CORPUSCULAR VOLUME 87.3 fl (80.0-96.0); PLATELET COUNT, AUTOMATED 162 10^3/uL (150-450); WHITE BLOOD COUNT 4.6 10^3/uL (4.0-10.0)
[2023-08-15 07:15] LABS: BLOOD UREA NITROGEN 12 MG/DL (9-23); CALCIUM LEVEL 8.8 MG/DL (8.3-10.6); CARBON DIOXIDE LEVEL 28 MMOL/L (20-31); CHLORIDE LEVEL 108 MMOL/L (98-107); CREATININE FOR GFR 0.56 MG/DL (0.70-1.30); GLOMERULAR FILTRATION RATE > 60.0 (>42); GLUCOSE, FASTING 115 MG/DL (74-106); POTASSIUM SERUM 3.6 MMOL/L (3.5-5.1); SODIUM LEVEL 141 MMOL/L (136-145)
[2023-08-15] MEDS: FLUTICASONE HFA 220 MCG 12 GM INHALER (FLOVENT) INH SCH ×2 (08:00→20:06)
[2023-08-15] MEDS: METAMUCIL (PSYLLIUM) PACKET PO SCH ×2 (08:45→21:33)
[2023-08-15] MEDS: MIRALAX *UNIT DOSE* 17GM PACKET PO SCH ×2 (08:45→21:32)
[2023-08-15] MEDS: APIXABAN 5 MG TAB (ELIQUIS) PO SCH ×2 (08:46→21:32)
[2023-08-15] MEDS: OMEPRAZOLE 20MG CAP PO SCH (08:46)
[2023-08-15] MEDS: VITAMIN D 1,000 INTERNATIONAL UNITS TABLET PO SCH (08:46)
[2023-08-15] MEDS: CETIRIZINE (ZyrTEC) 10 MG TAB PO SCH (08:46)
[2023-08-15] MEDS: busPIRone 5 MG TAB PO SCH ×2 (08:46→21:30)
[2023-08-15] MEDS: SINEMET 12.5MG/50MG PER 1/2 TABLET PO SCH ×3 (08:46→21:32)
[2023-08-15] MEDS: FLUTICASONE PROP 0.05% NASAL SPRAY 16 GM (FLONASE) NARES SCH ×2 (08:47→21:33)
[2023-08-15] MEDS: allopurinoL 300 MG TAB PO SCH (08:47)
[2023-08-15] MEDS: atenoloL 50 MG TAB PO SCH (08:47)
[2023-08-15] MEDS: MYCOLOG CREAM 15GM (NYSTATIN/TRIAMCINOLONE) TOP SCH ×3 (08:47→21:32)
[2023-08-15] MEDS: ACETAMINOPHEN TAB 650MG DOSE (2X325MG) PO PRN ×2 (17:00→21:31)
[2023-08-15] MEDS: RAMELTEON 8 MG TAB (ROZEREM) PO SCH (21:31)
[2023-08-15] MEDS: CO-ENZYME Q10 50 MG CAP PO SCH (21:31)
[2023-08-15] MEDS: ATORVASTATIN 20 MG TAB PO SCH (21:32)
[2023-08-15] MEDS: MULTIVITAMINS/MINERALS THERAP 1 TAB PO SCH (21:32)
[2023-08-16 06:00] VITALS: BP 126/79; TEMP 98.8; O2SAT 92
[2023-08-16 07:01] LABS: HEMATOCRIT 41.1 % (42.0-52.0); HEMOGLOBIN 13.8 g/dl (13.5-17.5); MEAN CORPUSCULAR HEMOGLOBIN 29.6 pg (27.0-33.0); MEAN CORPUSCULAR HGB CONC 33.6 g/dl (32.0-36.5); PLATELET COUNT, AUTOMATED 169 10^3/uL (150-450); RED BLOOD COUNT 4.67 10^6/uL (4.30-6.10)
[2023-08-16 07:35] LABS: BLOOD UREA NITROGEN 16 MG/DL (9-23); CALCIUM LEVEL 8.7 MG/DL (8.3-10.6); CARBON DIOXIDE LEVEL 27 MMOL/L (20-31); CHLORIDE LEVEL 106 MMOL/L (98-107); CREATININE FOR GFR 0.65 MG/DL (0.70-1.30); GLOMERULAR FILTRATION RATE > 60.0 (>42); GLUCOSE, FASTING 110 MG/DL (74-106); POTASSIUM SERUM 3.5 MMOL/L (3.5-5.1); SODIUM LEVEL 140 MMOL/L (136-145)
[2023-08-16] MEDS: FLUTICASONE HFA 220 MCG 12 GM INHALER (FLOVENT) INH SCH ×2 (07:48→22:52)
[2023-08-16] MEDS: MIRALAX *UNIT DOSE* 17GM PACKET PO SCH ×2 (08:48→20:34)
[2023-08-16] MEDS: METAMUCIL (PSYLLIUM) PACKET PO SCH ×3 (08:49→21:09)
[2023-08-16] MEDS: SINEMET 12.5MG/50MG PER 1/2 TABLET PO SCH ×3 (08:49→20:35)
[2023-08-16] MEDS: atenoloL 50 MG TAB PO SCH (08:49)
[2023-08-16] MEDS: allopurinoL 300 MG TAB PO SCH (08:49)
[2023-08-16] MEDS: VITAMIN D 1,000 INTERNATIONAL UNITS TABLET PO SCH (08:49)
[2023-08-16] MEDS: CETIRIZINE (ZyrTEC) 10 MG TAB PO SCH (08:50)
[2023-08-16] MEDS: OMEPRAZOLE 20MG CAP PO SCH (08:50)
[2023-08-16] MEDS: APIXABAN 5 MG TAB (ELIQUIS) PO SCH ×2 (08:50→20:35)
[2023-08-16] MEDS: FLUTICASONE PROP 0.05% NASAL SPRAY 16 GM (FLONASE) NARES SCH ×2 (08:50→20:35)
[2023-08-16] MEDS: ACETAMINOPHEN TAB 650MG DOSE (2X325MG) PO PRN (08:50)
[2023-08-16] MEDS: MYCOLOG CREAM 15GM (NYSTATIN/TRIAMCINOLONE) TOP SCH ×3 (08:51→20:35)
[2023-08-16] MEDS: busPIRone 5 MG TAB PO SCH ×2 (08:53→20:35)
[2023-08-16] MEDS: ATORVASTATIN 20 MG TAB PO SCH (20:34)
[2023-08-16] MEDS: MULTIVITAMINS/MINERALS THERAP 1 TAB PO SCH (20:35)
[2023-08-16] MEDS: RAMELTEON 8 MG TAB (ROZEREM) PO SCH (20:35)
[2023-08-16] MEDS: CO-ENZYME Q10 50 MG CAP PO SCH (20:35)
[2023-08-17] MEDS: ACETAMINOPHEN TAB 650MG DOSE (2X325MG) PO PRN ×2 (02:29→09:18)
[2023-08-17 05:30] VITALS: BP 113/74; TEMP 98.2; O2SAT 96
[2023-08-17 06:15] LABS: HEMATOCRIT 40.1 % (42.0-52.0); HEMOGLOBIN 13.6 g/dl (13.5-17.5); MEAN CORPUSCULAR HEMOGLOBIN 29.5 pg (27.0-33.0); MEAN CORPUSCULAR HGB CONC 33.9 g/dl (32.0-36.5); PLATELET COUNT, AUTOMATED 172 10^3/uL (150-450); RED BLOOD COUNT 4.61 10^6/uL (4.30-6.10); WHITE BLOOD COUNT 5.8 10^3/uL (4.0-10.0)
[2023-08-17 06:30] LABS: BLOOD UREA NITROGEN 13 MG/DL (9-23); CALCIUM LEVEL 8.8 MG/DL (8.3-10.6); CARBON DIOXIDE LEVEL 26 MMOL/L (20-31); CHLORIDE LEVEL 105 MMOL/L (98-107); CREATININE FOR GFR 0.61 MG/DL (0.70-1.30); GLOMERULAR FILTRATION RATE > 60.0 (>42); GLUCOSE, FASTING 115 MG/DL (74-106); POTASSIUM SERUM 3.9 MMOL/L (3.5-5.1); SODIUM LEVEL 138 MMOL/L (136-145)
[2023-08-17] MEDS: FLUTICASONE HFA 220 MCG 12 GM INHALER (FLOVENT) INH SCH (07:55)
[2023-08-17] MEDS: MIRALAX *UNIT DOSE* 17GM PACKET PO SCH (09:00)
[2023-08-17] MEDS: METAMUCIL (PSYLLIUM) PACKET PO SCH (09:00)
[2023-08-17] MEDS: OMEPRAZOLE 20MG CAP PO SCH (09:17)
[2023-08-17] MEDS: SINEMET 12.5MG/50MG PER 1/2 TABLET PO SCH (09:18)
[2023-08-17] MEDS: busPIRone 5 MG TAB PO SCH (09:18)
[2023-08-17] MEDS: allopurinoL 300 MG TAB PO SCH (09:18)
[2023-08-17 09:19] VITALS: BP 120/71
[2023-08-17] MEDS: APIXABAN 5 MG TAB (ELIQUIS) PO SCH (09:19)
[2023-08-17] MEDS: atenoloL 50 MG TAB PO SCH (09:19)
[2023-08-17] MEDS: VITAMIN D 1,000 INTERNATIONAL UNITS TABLET PO SCH (09:19)
[2023-08-17] MEDS: CETIRIZINE (ZyrTEC) 10 MG TAB PO SCH (09:19)
[2023-08-17] MEDS: MYCOLOG CREAM 15GM (NYSTATIN/TRIAMCINOLONE) TOP SCH (09:20)
[2023-08-17] MEDS: FLUTICASONE PROP 0.05% NASAL SPRAY 16 GM (FLONASE) NARES SCH (09:21)
[2023-08-17] MEDS ORDERED: CARB25TA9 PO (13:18)
[2023-08-17] MEDS ORDERED: RAME8TAB2 PO (13:18)
== END 2023-08-17 15:28 | disposition home or self-care (01) | DRG 177 ==
LOC: M ED 21:43 → M ED INP 08-12 03:35 → ENRESERV 08-12 11:51 → M MSPAV 08-12 12:16
PROVIDERS: ADMIT Family Medicine; ATTEND Family Medicine
DX: U07.1 COVID-19 (principal); G93.41 Metabolic encephalopathy; J44.1 Chronic obstructive pulmonary disease with (acute) exacerbation; I45.2 Bifascicular block; J98.11 Atelectasis; R44.3 Hallucinations, unspecified; J32.9 Chronic sinusitis, unspecified; M70.21 Olecranon bursitis, right elbow; G20.A1 Parkinson's disease without dyskinesia, without mention of fluctuations; I48.0 Paroxysmal atrial fibrillation; I10 Essential (primary) hypertension; I25.10 Atherosclerotic heart disease of native coronary artery without angina pectoris; I35.1 Nonrheumatic aortic (valve) insufficiency; G47.33 Obstructive sleep apnea (adult) (pediatric); F41.0 Panic disorder [episodic paroxysmal anxiety]; N52.9 Male erectile dysfunction, unspecified; J45.909 Unspecified asthma, uncomplicated; M10.9 Gout, unspecified; K21.9 Gastro-esophageal reflux disease without esophagitis; E11.9 Type 2 diabetes mellitus without complications; R47.81 Slurred speech; E87.6 Hypokalemia; R33.9 Retention of urine, unspecified; G31.83 Neurocognitive disorder with Lewy bodies; F02.80 Dementia in other diseases classified elsewhere, unspecified severity, without behavioral disturbance, psychotic disturbance, mood disturbance, and anxiety; Z93.3 Colostomy status; Z79.01 Long term (current) use of anticoagulants; Z90.49 Acquired absence of other specified parts of digestive tract; Z79.899 Other long term (current) drug therapy; Z88.5 Allergy status to narcotic agent; Z85.048 Personal history of other malignant neoplasm of rectum, rectosigmoid junction, and anus; Z86.73 Personal history of transient ischemic attack (TIA), and cerebral infarction without residual deficits; Z86.010 Personal history of colon polyps

== ENCOUNTER → 2023-11-10 | Outpatient (CLI) | payer MEDICARE ==
[~2023-11-10] MED LIST changes: +ALLO300T2 PO; +BUSP15TA47 PO; +CARB25TA9 PO; +OMEP1CAP73 PO; +RAME8TAB2 PO; +ROPI0.5T32 PO; +THERTAB21 PO; +VITMTA PO
[2023-11-10 17:38] LABS: ALBUMIN 3.6 G/DL (3.2-5.2); ALKALINE PHOSPHATASE 113 U/L (46-116); ALT/SGPT 23 U/L (7.0-40); AST/SGOT 34 U/L (<34); BILIRUBIN,TOTAL 0.6 MG/DL (0.3-1.2); BLOOD UREA NITROGEN 14 MG/DL (9-23); CALCIUM LEVEL 9.7 MG/DL (8.3-10.6); CARBON DIOXIDE LEVEL 29 MMOL/L (20-31); CHLORIDE LEVEL 105 MMOL/L (98-107); CREATININE FOR GFR 0.67 MG/DL (0.70-1.30); GLOMERULAR FILTRATION RATE > 60.0 (>42); GLUCOSE, FASTING 105 MG/DL (74-106); SODIUM LEVEL 139 MMOL/L (136-145); TOTAL PROTEIN 7.3 G/DL (5.7-8.2)
[2023-11-10 17:39] LABS: CREATININE, URINE 121.2 MG/DL; MAU/CREAT RATIO 6.6 MCG/MG (0.0-30.0)
== END ==
LOC: M WUC 10:47
PROVIDERS: ATTEND Nurse Practitioner Family
DX: R73.03 Prediabetes (principal); M10.9 Gout, unspecified

== ENCOUNTER → 2024-04-18 | Outpatient (CLI) | payer MEDICARE ==
[~2024-04-18] MED LIST changes: +RAMI10CA64 PO; -RAMI1CAP26 PO; +ROPI0.5T21 PO; -ROPI0.5T32 PO
[2024-04-18 17:59] LABS: BASO % 0.3 % (0.0-1.0); EOS # 0.1 10^3/uL (0.0-0.5); EOS % 1.9 % (0.0-3.0); HEMATOCRIT 47.1 % (42.0-52.0); HEMOGLOBIN 15.4 g/dl (13.5-17.5); LYMPH # 1.1 10^3/uL (1.5-5.0); LYMPH % 17.7 % (24.0-44.0); MEAN CORPUSCULAR HEMOGLOBIN 30.3 pg (27.0-33.0); MEAN CORPUSCULAR HGB CONC 32.7 g/dl (32.0-36.5); MEAN CORPUSCULAR VOLUME 92.5 fl (80.0-96.0); MONO # 0.6 10^3/uL (0.0-0.8); MONO % 8.9 % (2.0-8.0); NEUTROPHILS # 4.4 10^3/uL (1.5-8.5); NEUTROPHILS % 70.7 % (36.0-66.0); PLATELET COUNT, AUTOMATED 204 10^3/uL (150-450); RED BLOOD COUNT 5.09 10^6/uL (4.30-6.10); WHITE BLOOD COUNT 6.2 10^3/uL (4.0-10.0)
[2024-04-18 18:25] LABS: ALBUMIN 3.9 G/DL (3.2-5.2); ALKALINE PHOSPHATASE 125 U/L (46-116); ALT/SGPT 18 U/L (7.0-40); AST/SGOT 21 U/L (<34); BILIRUBIN,TOTAL 0.9 MG/DL (0.3-1.2); BLOOD UREA NITROGEN 16 MG/DL (9-23); CALCIUM LEVEL 10.2 MG/DL (8.3-10.6); CARBON DIOXIDE LEVEL 29 MMOL/L (20-31); CHLORIDE LEVEL 104 MMOL/L (98-107); CHOLESTEROL LEVEL 141 MG/DL (<200); CHOLESTEROL RISK RATIO 2.69 (<5); CREATININE FOR GFR 0.73 MG/DL (0.70-1.30); GLOMERULAR FILTRATION RATE > 60.0 (>42); GLUCOSE, FASTING 101 MG/DL (74-106); HDL CHOLESTEROL 52.4 MG/DL (>40); NON-HDL-C 88.6 MG/DL; POTASSIUM SERUM 3.9 MMOL/L (3.5-5.1); SODIUM LEVEL 139 MMOL/L (136-145); TOTAL PROTEIN 7.6 G/DL (5.7-8.2); TRIGLYCERIDES LEVEL 93 MG/DL (<150)
[2024-04-18 18:26] LABS: TOTAL 25(OH) VITAMIN D 77.5 NG/ML (20.0-100.0)
[2024-04-18 18:27] LABS: FREE T4 1.19 NG/DL (0.89-1.76)
[2024-04-18 18:36] LABS: HEMOGLOBIN A1c 5.6 % (4.0-6.0)
== END ==
LOC: M WUC 11:27
PROVIDERS: ATTEND Nurse Practitioner Family
DX: R73.03 Prediabetes (principal); M10.9 Gout, unspecified; Z79.899 Other long term (current) drug therapy

== ENCOUNTER → 2024-04-21 | Outpatient (CLI) | payer MEDICARE ==
[2024-04-21 17:06] LABS: BASO % 0.5 % (0.0-1.0); EOS # 0.2 10^3/uL (0.0-0.5); EOS % 2.8 % (0.0-3.0); HEMATOCRIT 43.9 % (42.0-52.0); HEMOGLOBIN 14.6 g/dl (13.5-17.5); LYMPH # 1.1 10^3/uL (1.5-5.0); MEAN CORPUSCULAR HEMOGLOBIN 30.7 pg (27.0-33.0); MEAN CORPUSCULAR HGB CONC 33.3 g/dl (32.0-36.5); MEAN CORPUSCULAR VOLUME 92.4 fl (80.0-96.0); MONO # 0.5 10^3/uL (0.0-0.8); MONO % 9.6 % (2.0-8.0); NEUTROPHILS # 3.8 10^3/uL (1.5-8.5); NEUTROPHILS % 66.9 % (36.0-66.0); PLATELET COUNT, AUTOMATED 197 10^3/uL (150-450); RED BLOOD COUNT 4.75 10^6/uL (4.30-6.10); WHITE BLOOD COUNT 5.6 10^3/uL (4.0-10.0)
== END ==
LOC: M WUC 14:55
PROVIDERS: ATTEND Nurse Practitioner Family
DX: M85.871 Other specified disorders of bone density and structure, right ankle and foot (principal); M79.89 Other specified soft tissue disorders

== ENCOUNTER → 2024-05-13 | Outpatient (CLI) | payer MEDICARE ==
[2024-05-13 16:56] LABS: BASO % 0.6 % (0.0-1.0); EOS # 0.2 10^3/uL (0.0-0.5); EOS % 3.7 % (0.0-3.0); HEMATOCRIT 44.2 % (42.0-52.0); HEMOGLOBIN 14.6 g/dl (13.5-17.5); LYMPH % 19.8 % (24.0-44.0); MEAN CORPUSCULAR HEMOGLOBIN 30.5 pg (27.0-33.0); MEAN CORPUSCULAR VOLUME 92.5 fl (80.0-96.0); MONO # 0.4 10^3/uL (0.0-0.8); MONO % 7.8 % (2.0-8.0); NEUTROPHILS # 3.5 10^3/uL (1.5-8.5); NEUTROPHILS % 67.9 % (36.0-66.0); PLATELET COUNT, AUTOMATED 182 10^3/uL (150-450); RED BLOOD COUNT 4.78 10^6/uL (4.30-6.10); WHITE BLOOD COUNT 5.1 10^3/uL (4.0-10.0)
[2024-05-13 17:03] LABS: ERYTHROCYTE SEDIMENTATION RATE 28 mm/hr (0-20)
[2024-05-13 17:04] LABS: HEMOGLOBIN A1c 5.6 % (4.0-6.0)
[2024-05-13 17:37] LABS: ALBUMIN 3.6 G/DL (3.2-5.2); ALKALINE PHOSPHATASE 114 U/L (46-116); ALT/SGPT 17 U/L (7.0-40); AST/SGOT 16 U/L (<34); BILIRUBIN,TOTAL 0.7 MG/DL (0.3-1.2); BLOOD UREA NITROGEN 13 MG/DL (9-23); CALCIUM LEVEL 9.2 MG/DL (8.3-10.6); CARBON DIOXIDE LEVEL 29 MMOL/L (20-31); CHLORIDE LEVEL 107 MMOL/L (98-107); CREATININE FOR GFR 0.66 MG/DL (0.70-1.30); GLOMERULAR FILTRATION RATE > 60.0 (>42); GLUCOSE, FASTING 100 MG/DL (74-106); POTASSIUM SERUM 3.9 MMOL/L (3.5-5.1); RHEUMATOID FACTOR QUANT 7.5 IU/ML (<14); SODIUM LEVEL 139 MMOL/L (136-145); TOTAL PROTEIN 7.2 G/DL (5.7-8.2)
[2024-05-13 17:41] LABS: FOLATE > 24.00 NG/ML (>5.4)
[2024-05-13 17:42] LABS: VITAMIN B12 LEVEL 855 PG/ML (211-911)
[2024-05-15 04:46] LABS: T P ELECTROPHORESIS SO 7.2 g/dL (6.1-8.1)
[2024-05-16 13:07] LABS: ANA SCREEN, IFA NEGATIVE (NEGATIVE)
== END ==
LOC: M WUC 13:38
PROVIDERS: ATTEND Psychiatry & Neurology Neurology
DX: G60.9 Hereditary and idiopathic neuropathy, unspecified (principal); Z79.899 Other long term (current) drug therapy

== ENCOUNTER → 2024-09-20 | Outpatient (CLI) | payer MEDICARE ==
[~2024-09-20] MED LIST changes: +GABA-284 PO
[2024-09-20 11:45] LABS: BASO % 0.5 % (0.0-1.0); EOS # 0.2 10^3/uL (0.0-0.5); EOS % 3.3 % (0.0-3.0); HEMATOCRIT 47.6 % (42.0-52.0); HEMOGLOBIN 15.5 g/dl (13.5-17.5); LYMPH # 1.3 10^3/uL (1.5-5.0); LYMPH % 21.8 % (24.0-44.0); MEAN CORPUSCULAR HEMOGLOBIN 29.6 pg (27.0-33.0); MEAN CORPUSCULAR HGB CONC 32.6 g/dl (32.0-36.5); MEAN CORPUSCULAR VOLUME 90.8 fl (80.0-96.0); MONO # 0.5 10^3/uL (0.0-0.8); MONO % 8.7 % (2.0-8.0); NEUTROPHILS # 3.7 10^3/uL (1.5-8.5); NEUTROPHILS % 65.4 % (36.0-66.0); PLATELET COUNT, AUTOMATED 195 10^3/uL (150-450); RED BLOOD COUNT 5.24 10^6/uL (4.30-6.10); WHITE BLOOD COUNT 5.7 10^3/uL (4.0-10.0)
[2024-09-20 12:30] LABS: ALBUMIN 3.5 G/DL (3.2-5.2); ALKALINE PHOSPHATASE 113 U/L (40-129); ALT/SGPT 15 U/L (7.0-40); AST/SGOT 25 U/L (<34); BILIRUBIN,TOTAL 0.6 MG/DL (0.3-1.2); BLOOD UREA NITROGEN 15 MG/DL (9-23); CALCIUM LEVEL 9.6 MG/DL (8.3-10.6); CARBON DIOXIDE LEVEL 28 MMOL/L (20-31); CHLORIDE LEVEL 106 MMOL/L (98-107); CREATININE FOR GFR 0.78 MG/DL (0.70-1.30); GLOMERULAR FILTRATION RATE > 60.0 (>42); GLUCOSE, FASTING 112 MG/DL (74-106); POTASSIUM SERUM 4.1 MMOL/L (3.5-5.1); SODIUM LEVEL 142 MMOL/L (136-145); TOTAL PROTEIN 7.2 G/DL (5.7-8.2)
== END ==
LOC: M WUC 09:43
PROVIDERS: ATTEND Specialist
DX: C20 Malignant neoplasm of rectum (principal)

== ENCOUNTER → 2024-09-21 | Outpatient (CLI) | payer MEDICARE | LOC: M EKG 16:18 | PROVIDERS: ATTEND Registered Nurse | DX: I49.1 Atrial premature depolarization (principal); I48.0 Paroxysmal atrial fibrillation; I48.4 Atypical atrial flutter ==

== ENCOUNTER → 2024-11-21 | Outpatient (CLI) | payer MEDICARE ==
[2024-11-21 12:48] LABS: BASO % 0.3 % (0.0-1.0); EOS # 0.2 10^3/uL (0.0-0.5); EOS % 3.1 % (0.0-3.0); HEMATOCRIT 46.7 % (42.0-52.0); HEMOGLOBIN 15.2 g/dl (13.5-17.5); LYMPH # 1.5 10^3/uL (1.5-5.0); LYMPH % 26.3 % (24.0-44.0); MEAN CORPUSCULAR HGB CONC 32.5 g/dl (32.0-36.5); MEAN CORPUSCULAR VOLUME 92.1 fl (80.0-96.0); MONO # 0.5 10^3/uL (0.0-0.8); MONO % 8.3 % (2.0-8.0); NEUTROPHILS # 3.6 10^3/uL (1.5-8.5); NEUTROPHILS % 61.7 % (36.0-66.0); PLATELET COUNT, AUTOMATED 185 10^3/uL (150-450); RED BLOOD COUNT 5.07 10^6/uL (4.30-6.10); WHITE BLOOD COUNT 5.8 10^3/uL (4.0-10.0)
[2024-11-21 13:11] LABS: ALBUMIN 3.4 G/DL (3.2-5.2); ALKALINE PHOSPHATASE 124 U/L (40-129); ALT/SGPT 26 U/L (7.0-40); AST/SGOT 25 U/L (<34); BILIRUBIN,TOTAL 0.8 MG/DL (0.3-1.2); BLOOD UREA NITROGEN 16 MG/DL (9-23); CALCIUM LEVEL 9.5 MG/DL (8.3-10.6); CARBON DIOXIDE LEVEL 29 MMOL/L (20-31); CHLORIDE LEVEL 105 MMOL/L (98-107); CHOLESTEROL LEVEL 136 MG/DL (<200); CHOLESTEROL RISK RATIO 2.57 (<5); CREATININE FOR GFR 0.83 MG/DL (0.70-1.30); GLOMERULAR FILTRATION RATE > 90.0 (>42); GLUCOSE, FASTING 98 MG/DL (74-106); HDL CHOLESTEROL 52.8 MG/DL (>40); LDL CHOLESTEROL 57.6 MG/DL (<100); NON-HDL-C 83.2 MG/DL; POTASSIUM SERUM 3.8 MMOL/L (3.5-5.1); SODIUM LEVEL 143 MMOL/L (136-145); TOTAL PROTEIN 7.1 G/DL (5.7-8.2); TRIGLYCERIDES LEVEL 128 MG/DL (<150)
[2024-11-21 13:12] LABS: THYROID STIMULATING HORMONE 2.126 uIU/ML (0.55-4.78); TOTAL 25(OH) VITAMIN D 84.4 NG/ML (20.0-100.0)
[2024-11-21 13:13] LABS: FREE T4 1.19 NG/DL (0.89-1.76)
[2024-11-21 13:15] LABS: HEMOGLOBIN A1c 5.6 % (4.0-6.0)
== END ==
LOC: M WUC 08:50
PROVIDERS: ATTEND Nurse Practitioner Family
DX: M10.9 Gout, unspecified (principal); R73.03 Prediabetes; E78.00 Pure hypercholesterolemia, unspecified

== ENCOUNTER → 2024-12-01 | Outpatient (CLI) | payer MEDICARE | LOC: M PLAIMG 12:23 | PROVIDERS: ATTEND Registered Nurse | DX: I35.1 Nonrheumatic aortic (valve) insufficiency (principal); I35.8 Other nonrheumatic aortic valve disorders; I36.1 Nonrheumatic tricuspid (valve) insufficiency; I77.810 Thoracic aortic ectasia ==

== ENCOUNTER 2025-01-23 11:31 | Inpatient (IN) | payer MEDICARE ==
[~2025-01-23] VITALS: Ht 175.3 cm; Wt 81.5 kg
[~2025-01-23 11:31] MED LIST changes: +LIDO1ADH93 TOP; -LIDO5DIS41 TOP
[2025-01-23] MEDS ORDERED: SIMETHICONE 80MG CHEW TAB PO PRN (13:00)
[2025-01-23] MEDS ORDERED: MAALOX 30 ML SUSP *UDC PO PRN (13:00)
[2025-01-23] MEDS ORDERED: ONDANSETRON 4MG ORAL DISINTEGRATING TAB SL PRN (13:00)
[2025-01-23 14:03] VITALS: BP 141/80; TEMP 97; O2SAT 97
[2025-01-23] MEDS ORDERED: CALC260T PO (15:17)
[2025-01-23] MEDS ORDERED: ADVA230A INH (15:17)
[2025-01-23] MEDS ORDERED: ACET650T15 PO (15:17)
[2025-01-23] MEDS ORDERED: ASPI81CH33 PO (15:17)
[2025-01-23] MEDS ORDERED: SENN-53 PO (15:17)
[2025-01-23] MEDS ORDERED: TORS20TA2 PO (15:17)
[2025-01-23] MEDS ORDERED: RA M10TA PO (15:17)
[2025-01-23] MEDS ORDERED: THERTAB19 PO (15:17)
[2025-01-23] MEDS ORDERED: VITA100093 PO (15:17)
[2025-01-23] MEDS ORDERED: CARB25TA9 PO (15:17)
[2025-01-23] MEDS ORDERED: GABA-1172 PO (15:17)
[2025-01-23] MEDS ORDERED: AMIO200T54 PO (15:17)
[2025-01-23] MEDS ORDERED: HOME MED LIST COMPLETE! XX SCH (15:20)
[2025-01-23] MEDS: SINEMET 25-100 MG TAB PO SCH (16:33)
[2025-01-23] MEDS ORDERED: SINEMET 25-100 MG TAB PO SCH (18:00)
[2025-01-23 20:00] VITALS: BP 109/63; TEMP 97.7; O2SAT 95
[2025-01-23] MEDS ORDERED: HEPARIN SOD 5000 UNITS/ML 1 ML VIAL/SYRINGE SC SCH (21:00)
[2025-01-23] MEDS: CALCIUM/VITAMIN D 500 MG TAB PO SCH (21:26)
[2025-01-23] MEDS: GABAPENTIN 300 MG CAP PO SCH (21:26)
[2025-01-23] MEDS: CO-ENZYME Q10 50 MG CAP PO SCH (21:26)
[2025-01-23] MEDS: ATORVASTATIN 20 MG TAB PO SCH (21:26)
[2025-01-23] MEDS: GEMFIBROZIL 600 MG TABLET PO SCH (21:26)
[2025-01-23] MEDS: busPIRone 5 MG TAB PO SCH (21:27)
[2025-01-23] MEDS: AMIODARONE 200 MG TAB PO SCH (21:28)
[2025-01-23] MEDS: RAMELTEON 8 MG TAB PO SCH (21:28)
[2025-01-23] MEDS: SENNOSIDES/DOCUSATE SODIUM 8.6 MG/50MG TAB PO SCH (21:28)
[2025-01-23] MEDS: BACITRACIN OINTMENT 30 GM TUBE TOP SCH (21:29)
[2025-01-23] MEDS: ACETAMINOPHEN 500 MG TAB PO SCH (22:22)
[2025-01-24 04:00] VITALS: BP 122/80; TEMP 97.9; O2SAT 94
[2025-01-24 07:20] LABS: BASO % 0.4 % (0.0-1.0); EOS # 0.2 10^3/uL (0.0-0.5); EOS % 3.4 % (0.0-3.0); HEMOGLOBIN 12.1 g/dl (13.5-17.5); LYMPH # 0.8 10^3/uL (1.5-5.0); LYMPH % 12.1 % (24.0-44.0); MEAN CORPUSCULAR HEMOGLOBIN 29.6 pg (27.0-33.0); MEAN CORPUSCULAR HGB CONC 32.7 g/dl (32.0-36.5); MEAN CORPUSCULAR VOLUME 90.5 fl (80.0-96.0); MONO # 0.5 10^3/uL (0.0-0.8); MONO % 7.6 % (2.0-8.0); NEUTROPHILS # 5.1 10^3/uL (1.5-8.5); NEUTROPHILS % 75.9 % (36.0-66.0); PLATELET COUNT, AUTOMATED 325 10^3/uL (150-450); RED BLOOD COUNT 4.09 10^6/uL (4.30-6.10); WHITE BLOOD COUNT 6.8 10^3/uL (4.0-10.0)
[2025-01-24] MEDS: ADVAIR HFA 230/21 MCG INHALER INH SCH (08:00)
[2025-01-24 08:02] LABS: ALBUMIN 3.1 G/DL (3.2-5.2); ALKALINE PHOSPHATASE 91 U/L (40-129); ALT/SGPT 18 U/L (7.0-40); AST/SGOT 22 U/L (<34); BILIRUBIN,TOTAL 0.6 MG/DL (0.3-1.2); BLOOD UREA NITROGEN 27 MG/DL (9-23); CALCIUM LEVEL 8.8 MG/DL (8.3-10.6); CARBON DIOXIDE LEVEL 23 MMOL/L (20-31); CHLORIDE LEVEL 104 MMOL/L (98-107); CREATININE FOR GFR 0.67 MG/DL (0.70-1.30); GLOMERULAR FILTRATION RATE > 90.0 (>42); GLUCOSE, FASTING 121 MG/DL (74-106); POTASSIUM SERUM 4.1 MMOL/L (3.5-5.1); SODIUM LEVEL 139 MMOL/L (136-145); TOTAL PROTEIN 6.9 G/DL (5.7-8.2)
[2025-01-24] MEDS: OMEPRAZOLE 20MG CAP PO SCH (08:17)
[2025-01-24] MEDS: VITAMIN D 1,000 INTERNATIONAL UNITS TABLET PO SCH (08:17)
[2025-01-24] MEDS: allopurinoL 300 MG TAB PO SCH (08:17)
[2025-01-24] MEDS: ASPIRIN 81 MG CHEWABLE TABLET PO SCH (08:17)
[2025-01-24] MEDS: CETIRIZINE 10 MG TAB PO SCH (08:17)
[2025-01-24] MEDS: TORSEMIDE 20 MG TAB PO SCH (08:18)
[2025-01-24] MEDS: PRENATAL VITAMINS CHEWABLE TABLET PO SCH (08:18)
[2025-01-24] MEDS: atenoloL 50 MG TAB PO SCH (08:19)
[2025-01-24 11:54] VITALS: BP 104/67; TEMP 97.6; O2SAT 94
[2025-01-24] MEDS: methocarbamoL 500 MG TAB PO PRN (17:36)
[2025-01-25 04:00] VITALS: BP 110/78; TEMP 97.5; O2SAT 94
[2025-01-25] MEDS ORDERED: VARIBAR PUDDING 40% w/v 230ML TUBE As Ordered ONE (07:20)
[2025-01-25] MEDS ORDERED: VARIBAR NECTAR 40% w/v 240ML SUSP BTL As Ordered ONE (07:20)
[2025-01-25] MEDS ORDERED: BARIUM SULFATE 700 MG TABLET As Ordered ONE (07:20)
[2025-01-25] MEDS ORDERED: E-Z-PAQUE 96% w/w SUSP 176 GM BTL As Ordered ONE (07:20)
[2025-01-25] MEDS: APIXABAN 5 MG TAB PO SCH (08:07)
[2025-01-25 12:00] VITALS: BP 138/81; TEMP 98.1; O2SAT 95
[2025-01-25 20:00] VITALS: BP 92/60; TEMP 97.3; O2SAT 94
[2025-01-25 20:49] LABS: KETONE, URINE AUTO RFX NEGATIVE (NEGATIVE); LEUKOCYTE ESTERASE UR AUTO RFX NEGATIVE (NEGATIVE); MUCUS, URINE RFX SMALL (NEGATIVE); NITRITE, URINE AUTO RFX NEGATIVE (NEGATIVE); RBC, URINE AUTO RFX 180 /HPF (0-3); SQUAM EPITHELIAL CELL UR AURFX 0 /HPF (0-6); WBC, URINE AUTO RFX 2 /HPF (0-3)
[2025-01-26 04:00] VITALS: BP 109/57; TEMP 98.1; O2SAT 96
[2025-01-26 12:00] VITALS: BP 126/65; TEMP 97.1; O2SAT 95
[2025-01-26 19:25] VITALS: BP 105/68; TEMP 97.3; O2SAT 96
[2025-01-27] MEDS: DEXTROMETHORPHAN 60 MG/10 ML SUSP 90 ML BTL PO PRN (02:40)
[2025-01-27 03:28] VITALS: BP 112/66; TEMP 97.5; O2SAT 92
[2025-01-27 07:37] LABS: BASO % 0.5 % (0.0-1.0); EOS # 0.2 10^3/uL (0.0-0.5); EOS % 3.9 % (0.0-3.0); HEMATOCRIT 35.3 % (42.0-52.0); HEMOGLOBIN 11.6 g/dl (13.5-17.5); LYMPH # 0.7 10^3/uL (1.5-5.0); MEAN CORPUSCULAR HEMOGLOBIN 29.8 pg (27.0-33.0); MEAN CORPUSCULAR HGB CONC 32.9 g/dl (32.0-36.5); MEAN CORPUSCULAR VOLUME 90.7 fl (80.0-96.0); MONO # 0.4 10^3/uL (0.0-0.8); MONO % 7.8 % (2.0-8.0); NEUTROPHILS # 4.3 10^3/uL (1.5-8.5); NEUTROPHILS % 75.4 % (36.0-66.0); PLATELET COUNT, AUTOMATED 346 10^3/uL (150-450); RED BLOOD COUNT 3.89 10^6/uL (4.30-6.10); WHITE BLOOD COUNT 5.7 10^3/uL (4.0-10.0)
[2025-01-27 07:59] LABS: ALBUMIN 3.1 G/DL (3.2-5.2); ALKALINE PHOSPHATASE 103 U/L (40-129); ALT/SGPT 13 U/L (7.0-40); AST/SGOT 18 U/L (<34); BILIRUBIN,TOTAL 0.5 MG/DL (0.3-1.2); BLOOD UREA NITROGEN 25 MG/DL (9-23); CALCIUM LEVEL 9.1 MG/DL (8.3-10.6); CARBON DIOXIDE LEVEL 26 MMOL/L (20-31); CHLORIDE LEVEL 104 MMOL/L (98-107); CREATININE FOR GFR 0.82 MG/DL (0.70-1.30); GLOMERULAR FILTRATION RATE > 90.0 (>42); GLUCOSE, FASTING 127 MG/DL (74-106); POTASSIUM SERUM 3.8 MMOL/L (3.5-5.1); SODIUM LEVEL 142 MMOL/L (136-145); TOTAL PROTEIN 6.8 G/DL (5.7-8.2)
[2025-01-27 08:05] LABS: PROCALCITONIN 0.07 ng/ml
[2025-01-27 08:58] VITALS: BP 116/65; TEMP 98; O2SAT 95
[2025-01-27] MEDS: FLUTICASONE PROPIONATE 0.05% NASAL SPRAY 16 GM NARES SCH (09:00)
[2025-01-27] MEDS ORDERED: FLUTICASONE PROPIONATE 0.05% NASAL SPRAY 16 GM NARES ONE (10:20)
[2025-01-27 12:00] VITALS: BP 118/74; TEMP 97.2; O2SAT 93
[2025-01-27] MEDS: DOCUSATE SODIUM 100 MG CAPSULE PO SCH (14:05)
[2025-01-27 20:00] VITALS: BP 109/60; TEMP 97.5; O2SAT 93
[2025-01-28 04:00] VITALS: BP 112/65; TEMP 97.6; O2SAT 91
[2025-01-28] MEDS: BISACODYL 5 MG TAB PO PRN (09:43)
[2025-01-28] MEDS: MOM 30 ML SUSPENSION UDC PO PRN (09:43)
[2025-01-28 12:00] VITALS: BP 118/65; TEMP 97.7; O2SAT 96
[2025-01-28 20:10] VITALS: BP 112/66; TEMP 97.7; O2SAT 95
[2025-01-29 04:59] VITALS: BP 120/66; TEMP 97.6; O2SAT 95
[2025-01-29 12:00] VITALS: BP 118/63; TEMP 97.8; O2SAT 93
[2025-01-29 20:16] VITALS: BP 121/73; TEMP 98; O2SAT 95
[2025-01-30 05:18] VITALS: BP 119/63; TEMP 98.1; O2SAT 95
[2025-01-30] MEDS: NYSTATIN 500,000U/5ML SUSP UDC PO SCH (12:06)
[2025-01-30 12:07] VITALS: BP 137/82; TEMP 97.6; O2SAT 95
[2025-01-30 19:37] VITALS: BP 161/77; TEMP 97.5; O2SAT 95
[2025-01-31 03:43] VITALS: BP 106/58; TEMP 98.2; O2SAT 94
[2025-01-31 08:01] VITALS: BP 128/71; TEMP 97.1; O2SAT 92
[2025-01-31 12:12] VITALS: BP 137/83; TEMP 97.4; O2SAT 93
[2025-01-31 19:13] VITALS: BP 118/64; TEMP 97.5; O2SAT 94
[2025-02-01 01:29] VITALS: BP 118/64; TEMP 97.5; O2SAT 94
[2025-02-01 03:38] VITALS: BP 102/57; TEMP 96.6; O2SAT 96
[2025-02-01 12:00] VITALS: BP 112/63; TEMP 97.2; O2SAT 95
[2025-02-01 20:00] VITALS: BP 110/63; TEMP 98.6; O2SAT 95
[2025-02-02 04:00] VITALS: BP 128/61; TEMP 97.2; O2SAT 94
[2025-02-02 12:00] VITALS: BP 117/67; TEMP 96.9; O2SAT 94
[2025-02-02 20:00] VITALS: BP 149/84; TEMP 97; O2SAT 97
[2025-02-03 04:00] VITALS: BP 114/58; TEMP 97.8; O2SAT 91
[2025-02-03] MEDS: AMIODARONE 200 MG TAB PO SCH (08:28)
[2025-02-03 12:00] VITALS: BP 118/70; TEMP 97; O2SAT 93
[2025-02-03] MEDS ORDERED: AMIO200T54 PO (15:50)
[2025-02-03] MEDS ORDERED: FLUTISP NARES (15:50)
[2025-02-03] MEDS ORDERED: ELIQ5TAB PO (15:50)
[2025-02-03] MEDS ORDERED: METH-1164 PO (15:50)
[2025-02-03 20:00] VITALS: BP 97/53; TEMP 97.7; O2SAT 94
[2025-02-04 04:00] VITALS: BP 105/66; TEMP 97.8; O2SAT 97
[2025-02-04 12:00] VITALS: BP 119/64; TEMP 97.3; O2SAT 95
[2025-02-04 20:00] VITALS: BP 112/63; TEMP 97; O2SAT 95
[2025-02-05 04:00] VITALS: BP 124/68; TEMP 97.4; O2SAT 94
[2025-02-05 12:00] VITALS: BP 136/75; TEMP 97.8; O2SAT 96
[2025-02-05 20:00] VITALS: BP 109/61; TEMP 97.3; O2SAT 95
[2025-02-06 04:00] VITALS: BP 118/68; TEMP 97.6; O2SAT 96
[2025-02-06 08:38] VITALS: BP 113/62
[2025-02-06] MEDS ORDERED: TORS20TA2 PO (15:17)
== END 2025-02-06 11:45 | disposition home health service (06) | DRG 57 ==
LOC: M PM&R 14:03
PROVIDERS: ADMIT Physical Medicine & Rehabilitation; ATTEND Physical Medicine & Rehabilitation
DX: G20.A1 Parkinson's disease without dyskinesia, without mention of fluctuations (principal); I50.32 Chronic diastolic (congestive) heart failure; B37.0 Candidal stomatitis; I48.0 Paroxysmal atrial fibrillation; I25.10 Atherosclerotic heart disease of native coronary artery without angina pectoris; I11.0 Hypertensive heart disease with heart failure; E78.5 Hyperlipidemia, unspecified; R73.03 Prediabetes; R13.12 Dysphagia, oropharyngeal phase; K21.9 Gastro-esophageal reflux disease without esophagitis; M10.9 Gout, unspecified; G47.33 Obstructive sleep apnea (adult) (pediatric); F41.9 Anxiety disorder, unspecified; G47.00 Insomnia, unspecified; K59.00 Constipation, unspecified; R35.0 Frequency of micturition; G57.93 Unspecified mononeuropathy of bilateral lower limbs; Z93.3 Colostomy status; J45.909 Unspecified asthma, uncomplicated; N32.81 Overactive bladder; R30.0 Dysuria; R09.81 Nasal congestion; R05.9 Cough, unspecified; Z74.1 Need for assistance with personal care; Z74.09 Other reduced mobility; Z95.5 Presence of coronary angioplasty implant and graft; Z79.01 Long term (current) use of anticoagulants; Z79.82 Long term (current) use of aspirin; Z79.899 Other long term (current) drug therapy; Z88.5 Allergy status to narcotic agent; Z90.49 Acquired absence of other specified parts of digestive tract; Z85.048 Personal history of other malignant neoplasm of rectum, rectosigmoid junction, and anus

== ENCOUNTER → 2025-04-24 | Outpatient (CLI) | payer MEDICARE ==
[~2025-04-24] MED LIST changes: +ACET-1515 PO; +ADVA230A INH; +AMIO200T54 PO; +ASPI81CH33 PO; +CALC260T PO; +FLUTISP NARES; +GABA-1172 PO; +METH-1164 PO; +RA M10TA PO; +SENN-53 PO; +THERTAB19 PO; +TORS20TA2 PO; +VITA100093 PO
[2025-04-24 12:58] LABS: BASO # 0.0 10^3/uL (0.0-0.2); BASO % 0.4 % (0.0-1.0); EOS # 0.3 10^3/uL (0.0-0.5); EOS % 5.5 % (0.0-3.0); LYMPH # 1.0 10^3/uL (1.5-5.0); LYMPH % 19.3 % (24.0-44.0); MONO # 0.4 10^3/uL (0.0-0.8); MONO % 8.3 % (2.0-8.0); NEUTROPHILS # 3.4 10^3/uL (1.5-8.5); NEUTROPHILS % 66.1 % (36.0-66.0); PLATELET COUNT, AUTOMATED 222 10^3/uL (150-450)
[2025-04-24 13:24] LABS: ESTIMATED AVERAGE GLUCOSE 126.0 MG/DL (60-110)
[2025-04-24 13:32] LABS: TOTAL 25(OH) VITAMIN D 75.4 NG/ML (20.0-100.0)
[2025-04-24 13:34] LABS: FREE T4 1.42 NG/DL (0.89-1.76)
[2025-04-24 13:37] LABS: ALT/SGPT 31.0 U/L (7.0-40); AST/SGOT 21.0 U/L (<34); CALCIUM LEVEL 8.6 MG/DL (8.3-10.6); CARBON DIOXIDE LEVEL 25.0 MMOL/L (20-31); CHLORIDE LEVEL 107.0 MMOL/L (98-107); CHOLESTEROL LEVEL 135.0 MG/DL (<200); CHOLESTEROL RISK RATIO 2.2 (<5); CREATININE FOR GFR 0.92 MG/DL (0.70-1.30); GLOMERULAR FILTRATION RATE 87.8 (>42); LDL CHOLESTEROL 54.3 MG/DL (<100); NON-HDL-C 73.7 MG/DL; POTASSIUM SERUM 4.2 MMOL/L (3.5-5.1); SODIUM LEVEL 141.0 MMOL/L (136-145); TRIGLYCERIDES LEVEL 97.0 MG/DL (<150)
== END ==
LOC: M WUC 09:08
PROVIDERS: ATTEND Nurse Practitioner Family
DX: R73.03 Prediabetes (principal); M10.9 Gout, unspecified; L97.511 Non-pressure chronic ulcer of other part of right foot limited to breakdown of skin; E78.5 Hyperlipidemia, unspecified; E55.9 Vitamin D deficiency, unspecified

== ENCOUNTER → 2025-05-22 | Outpatient (CLI) | payer MEDICARE ==
[2025-05-22 18:31] LABS: BASO # 0.0 10^3/uL (0.0-0.2); BASO % 0.6 % (0.0-1.0); EOS # 0.2 10^3/uL (0.0-0.5); EOS % 3.6 % (0.0-3.0); LYMPH # 0.8 10^3/uL (1.5-5.0); LYMPH % 17.2 % (24.0-44.0); MONO # 0.4 10^3/uL (0.0-0.8); MONO % 7.4 % (2.0-8.0); NEUTROPHILS # 3.3 10^3/uL (1.5-8.5); NEUTROPHILS % 71.0 % (36.0-66.0); PLATELET COUNT, AUTOMATED 223 10^3/uL (150-450)
== END ==
LOC: M WUC 13:56
PROVIDERS: ATTEND Nurse Practitioner Family
DX: L97.511 Non-pressure chronic ulcer of other part of right foot limited to breakdown of skin (principal)

== ENCOUNTER 2025-07-01 17:43 | Inpatient (IN) | payer MEDICARE ==
[~2025-07-01] VITALS: Ht 172.7 cm; Wt 87.6 kg
[~2025-07-01 17:43] MED LIST changes: +MELA10TA30 PO; -RA M10TA PO
[2025-07-01 18:51] LABS: BASO # 0.0 10^3/uL (0.0-0.2); BASO % 0.6 % (0.0-1.0); EOS # 0.3 10^3/uL (0.0-0.5); EOS % 5.4 % (0.0-3.0); LYMPH # 0.9 10^3/uL (1.5-5.0); LYMPH % 17.9 % (24.0-44.0); MONO # 0.3 10^3/uL (0.0-0.8); MONO % 6.8 % (2.0-8.0); NEUTROPHILS # 3.5 10^3/uL (1.5-8.5); NEUTROPHILS % 69.1 % (36.0-66.0); PLATELET COUNT, AUTOMATED 233 10^3/uL (150-450)
[2025-07-01 18:58] LABS: ALT/SGPT 10 U/L (7.0-40); AST/SGOT 27 U/L (<34); CALCIUM LEVEL 8.8 MG/DL (8.3-10.6); CARBON DIOXIDE LEVEL 26 MMOL/L (20-31); CHLORIDE LEVEL 106 MMOL/L (98-107); CREATININE FOR GFR 0.86 MG/DL (0.70-1.30); GLOMERULAR FILTRATION RATE > 90.0 (>42); POTASSIUM SERUM 4.3 MMOL/L (3.5-5.1); SODIUM LEVEL 143 MMOL/L (136-145)
[2025-07-01 19:25] LABS: CK-MB VALUE MASS 2.0 NG/ML (<3.6)
[2025-07-01 19:34] LABS: CPK CREATINE PHOSPHOKINASE 63 U/L (46-171); MB/CK RELATIVE INDEX 3.17 (< OR =4)
[2025-07-01 20:40] LABS: KETONE, URINE AUTO RFX TRACE mg/dL (NEGATIVE); LEUKOCYTE ESTERASE UR AUTO RFX NEGATIVE (NEGATIVE); MUCUS, URINE RFX SMALL (NEGATIVE); NITRITE, URINE AUTO RFX NEGATIVE (NEGATIVE); RBC, URINE AUTO RFX 1 /HPF (0-3); SQUAM EPITHELIAL CELL UR AURFX 0 /HPF (0-6); WBC, URINE AUTO RFX 1 /HPF (0-3)
[2025-07-01 21:00] LABS: AMPHETAMINES LEVEL URINE NEGATIVE (NEGATIVE); BARBITURATES URINE NEGATIVE (NEGATIVE); BENZODIAZEPINES URINE NEGATIVE (NEGATIVE); CANNABINOIDS URINE NEGATIVE (NEGATIVE); COCAINE METABOLITE URINE NEGATIVE (NEGATIVE); METHADONE URINE NEGATIVE (NEGATIVE); OPIATES URINE NEGATIVE (NEGATIVE); PHENCYCLIDINE URINE NEGATIVE (NEGATIVE)
[2025-07-01] MEDS: cefTRIAXone SOD 1 GM in DEXTROSE 5% (D5W) ADV/MINI-BAG 50 ML IV ONE (21:10)
[2025-07-01] MEDS: AZITHROMYCIN 250 MG TABLET PO ONE (21:10)
[2025-07-01] MEDS ORDERED: ALBUTEROL SULFATE 2.5 MG/0.5 ML INH CONCENTRATE NEB SOLN INH PRN (21:50)
[2025-07-01] MEDS ORDERED: MOM 30 ML SUSPENSION UDC PO PRN (21:50)
[2025-07-02] VITALS (15 sets, daily range): BP systolic 120–150; BP diastolic 60–81; TEMP 97.1–98.5; O2SAT 90–96
[2025-07-02] MEDS: NS (Normal Saline) 0.9% 1,000 ML IV ONE (00:26)
[2025-07-02] MEDS ORDERED: AMIO200T54 PO (00:34)
[2025-07-02] MEDS ORDERED: ASPI81TA26 PO (00:34)
[2025-07-02] MEDS ORDERED: ACET-683 PO (00:34)
[2025-07-02] MEDS ORDERED: CARB-113 PO (00:41)
[2025-07-02] MEDS ORDERED: CALC500T61 PO (00:41)
[2025-07-02] MEDS ORDERED: CINN500C12 PO (00:46)
[2025-07-02] MEDS ORDERED: FLON1SPR NARES (00:46)
[2025-07-02] MEDS ORDERED: HOME MED LIST COMPLETE! XX SCH (00:50)
[2025-07-02 07:21] LABS: PLATELET COUNT, AUTOMATED 201 10^3/uL (150-450)
[2025-07-02 07:56] LABS: CALCIUM LEVEL 8.0 MG/DL (8.3-10.6); CARBON DIOXIDE LEVEL 24 MMOL/L (20-31); CHLORIDE LEVEL 107 MMOL/L (98-107); CREATININE FOR GFR 0.78 MG/DL (0.70-1.30); GLOMERULAR FILTRATION RATE > 90.0 (>42); POTASSIUM SERUM 4.0 MMOL/L (3.5-5.1); SODIUM LEVEL 142 MMOL/L (136-145)
[2025-07-02] MEDS: ADVAIR HFA 230/21 MCG INHALER INH SCH (08:00)
[2025-07-02] MEDS ORDERED: CARBIDOPA/LEVODOPA 25 MG/100 MG PO SCH ×2 (08:00→12:00)
[2025-07-02] MEDS: ENOXAPARIN 40 MG/0.4 ML SYRINGE (J1650 PER 10MG) SC SCH (09:00)
[2025-07-02] MEDS: CARBIDOPA/LEVODOPA 25 MG/100 MG PO SCH (09:00)
[2025-07-02 10:48] LABS: VITAMIN B12 LEVEL 1106 PG/ML (211-911)
[2025-07-02] MEDS ORDERED: FLUZONE HIGH DOSE (65+) 0.5 ML SYRINGE (25-26) IM.IMMUN ONE (12:00)
[2025-07-02] MEDS: busPIRone 5 MG TAB PO SCH (12:05)
[2025-07-02] MEDS: AMIODARONE 200 MG TAB PO SCH (12:06)
[2025-07-02] MEDS: ACETAMINOPHEN 325 MG TAB PO PRN (12:07)
[2025-07-02] MEDS: OMEPRAZOLE 20MG CAP PO SCH (12:07)
[2025-07-02] MEDS: DOXYCYCLINE HYCLATE 100 MG TABLET PO SCH (12:07)
[2025-07-02] MEDS: ASPIRIN 81 MG ENTERIC TABLET PO SCH (13:28)
[2025-07-02] MEDS: OLANZapine INTRAMUSCULAR 10MG VIAL IM STA (14:40)
[2025-07-02] MEDS ORDERED: cefTRIAXone SOD 1 GM in DEXTROSE 5% (D5W) ADV/MINI-BAG 50 ML IV SCH (20:00)
[2025-07-02] MEDS ORDERED: AZITHROMYCIN 250 MG TABLET PO SCH (20:00)
[2025-07-02] MEDS: CO-ENZYME Q10 50 MG CAP PO SCH (20:06)
[2025-07-02] MEDS: ATORVASTATIN 20 MG TAB PO SCH (20:07)
[2025-07-02] MEDS: GABAPENTIN 300 MG CAP PO SCH (20:07)
[2025-07-02] MEDS ORDERED: GEMFIBROZIL 600 MG TABLET PO SCH (21:00)
[2025-07-03] VITALS (11 sets, daily range): BP systolic 103–127; BP diastolic 56–66; TEMP 98.2–100.8; O2SAT 92–96
[2025-07-03] MEDS: FLUZONE HIGH DOSE (65+) 0.5 ML SYRINGE (25-26) IM.IMMUN ONE (09:01)
[2025-07-04] VITALS (7 sets, daily range): BP systolic 102–115; BP diastolic 53–59; TEMP 98.2–100.5; O2SAT 91–95
[2025-07-04 05:53] LABS: PLATELET COUNT, AUTOMATED 186 10^3/uL (150-450)
[2025-07-04 06:31] LABS: ALT/SGPT 26 U/L (7.0-40); AST/SGOT 26 U/L (<34); CALCIUM LEVEL 8.0 MG/DL (8.3-10.6); CARBON DIOXIDE LEVEL 27 MMOL/L (20-31); CHLORIDE LEVEL 106 MMOL/L (98-107); CREATININE FOR GFR 0.90 MG/DL (0.70-1.30); GLOMERULAR FILTRATION RATE > 90.0 (>42); POTASSIUM SERUM 3.6 MMOL/L (3.5-5.1); SODIUM LEVEL 144 MMOL/L (136-145)
[2025-07-04] MEDS: CEFPODOXIME PROXETIL 200 MG TABLET PO SCH (12:04)
[2025-07-04] MEDS ORDERED: PROHANCE 279.3MG/ML 5ML VIAL As Ordered ONE (18:00)
[2025-07-04] MEDS ORDERED: PROHANCE 279.3MG/ML 15ML VIAL As Ordered ONE (18:01)
[2025-07-05 03:48] VITALS: BP 100/62; TEMP 98.2; O2SAT 93
[2025-07-05 07:41] VITALS: BP 121/66; TEMP 99; O2SAT 92
[2025-07-05] MEDS ORDERED: VANCOMYCIN HCL 1,000 MG, VIAL MATE ADAPTER 1 EACH in NS 250 ML IV SCH (08:55)
[2025-07-05 09:08] LABS: C REACTIVE PROTEIN QUANTITATIV 4.86 MG/DL (<1.0)
[2025-07-05] MEDS: cefTRIAXone SOD 2 GM in DEXTROSE 5% (D5W) ADV/MINI-BAG 50 ML IV SCH (10:04)
[2025-07-05] MEDS: VANCOMYCIN HCL 1,750 MG, VIAL MATE ADAPTER 1 EACH in NS 500 ML IV ONE (11:36)
[2025-07-05 12:00] VITALS: BP 114/57; TEMP 99.1; O2SAT 95
[2025-07-05 19:23] VITALS: BP 111/56; TEMP 98.6; O2SAT 95
[2025-07-05] MEDS: VANCOMYCIN HCL 1,000 MG, VIAL MATE ADAPTER 1 EACH in NS 250 ML IV SCH (21:44)
[2025-07-05 23:28] VITALS: BP 131/67; TEMP 98; O2SAT 95
[2025-07-06 03:26] VITALS: BP 131/67; TEMP 98; O2SAT 95
[2025-07-06 07:20] LABS: PLATELET COUNT, AUTOMATED 210 10^3/uL (150-450)
[2025-07-06 07:30] VITALS: BP 133/73; TEMP 97.6; O2SAT 93
[2025-07-06 07:49] LABS: C REACTIVE PROTEIN QUANTITATIV 5.28 MG/DL (<1.0); CALCIUM LEVEL 7.8 MG/DL (8.3-10.6); CARBON DIOXIDE LEVEL 27 MMOL/L (20-31); CHLORIDE LEVEL 107 MMOL/L (98-107); CREATININE FOR GFR 0.66 MG/DL (0.70-1.30); GLOMERULAR FILTRATION RATE > 90.0 (>42); POTASSIUM SERUM 3.7 MMOL/L (3.5-5.1); SODIUM LEVEL 145 MMOL/L (136-145)
[2025-07-06] MEDS: VANCOMYCIN HCL 1,250 MG, VIAL MATE ADAPTER 1 EACH in NS 250 ML IV SCH (10:42)
[2025-07-06 15:27] VITALS: BP 136/74; TEMP 98; O2SAT 94
[2025-07-06 19:35] VITALS: BP 146/76; TEMP 98.5; O2SAT 94
[2025-07-07 03:39] VITALS: BP 132/64; TEMP 98.9; O2SAT 92
[2025-07-07 05:56] LABS: PLATELET COUNT, AUTOMATED 219 10^3/uL (150-450)
[2025-07-07 06:17] LABS: CALCIUM LEVEL 7.9 MG/DL (8.3-10.6); CARBON DIOXIDE LEVEL 26 MMOL/L (20-31); CHLORIDE LEVEL 107 MMOL/L (98-107); CREATININE FOR GFR 0.67 MG/DL (0.70-1.30); GLOMERULAR FILTRATION RATE > 90.0 (>42); POTASSIUM SERUM 3.8 MMOL/L (3.5-5.1); SODIUM LEVEL 144 MMOL/L (136-145)
[2025-07-07 07:20] VITALS: BP 138/72; TEMP 98.5; O2SAT 91
[2025-07-07 15:26] VITALS: BP 103/62; TEMP 97.7; O2SAT 97
[2025-07-07] MEDS: D5W/0.9% SODIUM CHLORIDE 1,000 ML IV SCH (16:02)
[2025-07-07 16:29] LABS: CPK CREATINE PHOSPHOKINASE 56 U/L (46-171)
[2025-07-07] MEDS: DAPTOmycin 800 MG in NS 50 ML IV SCH (17:30)
[2025-07-07] MEDS: ATORVASTATIN 20 MG TAB PO SCH (21:01)
[2025-07-07] MEDS: GABAPENTIN 100 MG CAP PO SCH (21:01)
[2025-07-07] MEDS: QUEtiapine FUMARATE 12.5 MG HALF-TAB PO SCH (21:01)
[2025-07-08] VITALS: BP 118/66; TEMP 98.7; O2SAT 95
[2025-07-08 04:00] VITALS: BP 126/67; TEMP 98.8; O2SAT 92
[2025-07-08 06:04] LABS: PLATELET COUNT, AUTOMATED 225 10^3/uL (150-450)
[2025-07-08 06:15] LABS: CALCIUM LEVEL 8.4 MG/DL (8.3-10.6); CARBON DIOXIDE LEVEL 26 MMOL/L (20-31); CHLORIDE LEVEL 106 MMOL/L (98-107); CREATININE FOR GFR 0.69 MG/DL (0.70-1.30); GLOMERULAR FILTRATION RATE > 90.0 (>42); POTASSIUM SERUM 4.0 MMOL/L (3.5-5.1); SODIUM LEVEL 144 MMOL/L (136-145)
[2025-07-08 07:43] VITALS: BP 124/68; TEMP 98.7; O2SAT 93
[2025-07-08] MEDS: DAPTOmycin 800 MG in NS 50 ML IV SCH (12:12)
[2025-07-08 12:19] VITALS: BP 129/65; TEMP 98.5; O2SAT 93
[2025-07-08 16:08] VITALS: BP 117/64; TEMP 98.3; O2SAT 95
[2025-07-08] MEDS: IBUPROFEN 400 MG TAB PO ONE (17:03)
[2025-07-08 20:00] VITALS: BP 121/61; TEMP 98.3; O2SAT 93
[2025-07-08] MEDS: QUEtiapine FUMARATE 12.5 MG HALF-TAB PO SCH (20:30)
[2025-07-09 05:00] VITALS: BP 119/65; TEMP 98.1; O2SAT 97
[2025-07-09 05:54] LABS: PLATELET COUNT, AUTOMATED 182 10^3/uL (150-450)
[2025-07-09 06:30] LABS: CALCIUM LEVEL 7.8 MG/DL (8.3-10.6); CARBON DIOXIDE LEVEL 26 MMOL/L (20-31); CHLORIDE LEVEL 107 MMOL/L (98-107); CREATININE FOR GFR 0.69 MG/DL (0.70-1.30); GLOMERULAR FILTRATION RATE > 90.0 (>42); POTASSIUM SERUM 3.9 MMOL/L (3.5-5.1); SODIUM LEVEL 145 MMOL/L (136-145)
[2025-07-09 07:50] VITALS: BP 132/70; TEMP 98.2; O2SAT 97
[2025-07-09 12:33] VITALS: BP 125/85; TEMP 98.1; O2SAT 98
[2025-07-09 14:47] VITALS: BP 110/62; TEMP 98.2; O2SAT 96
[2025-07-09] MEDS: IBUPROFEN 200 MG TAB PO PRN (18:13)
[2025-07-09 20:12] VITALS: BP 115/59; TEMP 98.1; O2SAT 93
[2025-07-10 04:19] VITALS: BP 142/67; TEMP 98.5; O2SAT 96
[2025-07-10 06:51] LABS: PLATELET COUNT, AUTOMATED 179 10^3/uL (150-450)
[2025-07-10 07:16] LABS: CALCIUM LEVEL 7.8 MG/DL (8.3-10.6); CARBON DIOXIDE LEVEL 26 MMOL/L (20-31); CHLORIDE LEVEL 108 MMOL/L (98-107); CREATININE FOR GFR 0.68 MG/DL (0.70-1.30); GLOMERULAR FILTRATION RATE > 90.0 (>42); POTASSIUM SERUM 3.8 MMOL/L (3.5-5.1); SODIUM LEVEL 145 MMOL/L (136-145)
[2025-07-10] MEDS: LIDOCAINE 5% PATCH TD SCH (13:51)
[2025-07-10 14:00] VITALS: BP 134/64; TEMP 98.5; O2SAT 95
[2025-07-10 15:50] LABS: C REACTIVE PROTEIN QUANTITATIV 0.74 MG/DL (<1.0)
[2025-07-10] MEDS: GABAPENTIN 300 MG CAP PO SCH (20:27)
[2025-07-10 21:59] VITALS: BP 139/73; TEMP 98.6; O2SAT 95
[2025-07-11 05:20] VITALS: BP 137/70; TEMP 98.4; O2SAT 96
[2025-07-11 07:45] LABS: PLATELET COUNT, AUTOMATED 196 10^3/uL (150-450)
[2025-07-11 08:00] VITALS: BP 137/70; TEMP 98.4; O2SAT 96
[2025-07-11 08:10] LABS: CALCIUM LEVEL 8.2 MG/DL (8.3-10.6); CARBON DIOXIDE LEVEL 25 MMOL/L (20-31); CHLORIDE LEVEL 105 MMOL/L (98-107); CREATININE FOR GFR 0.64 MG/DL (0.70-1.30); GLOMERULAR FILTRATION RATE > 90.0 (>42); POTASSIUM SERUM 3.9 MMOL/L (3.5-5.1); SODIUM LEVEL 141 MMOL/L (136-145)
[2025-07-11] MEDS: TAMSULOSIN 0.4 MG CAP PO SCH (09:35)
[2025-07-11] MEDS: CARBIDOPA/LEVODOPA 25 MG/100 MG PO SCH (09:37)
[2025-07-11] MEDS ORDERED: PILL CUTTER 1 EACH XX ONE (09:43)
[2025-07-11 14:00] VITALS: BP 147/73; TEMP 98.4; O2SAT 93
[2025-07-11] MEDS: IBUPROFEN 400 MG TAB PO PRN (14:00)
[2025-07-11] MEDS: FLUZONE HIGH DOSE (65+) 0.5 ML SYRINGE (25-26) IM.IMMUN ONE (17:36)
[2025-07-11 19:17] LABS: CA15-3 ANTIGEN 10.2 U/ML (<32.4)
[2025-07-11 20:52] VITALS: BP 140/71; TEMP 98.6; O2SAT 92
[2025-07-12 06:32] VITALS: BP 132/63; TEMP 98.5; O2SAT 95
[2025-07-12 06:53] LABS: PLATELET COUNT, AUTOMATED 193 10^3/uL (150-450)
[2025-07-12 07:24] LABS: CALCIUM LEVEL 8.1 MG/DL (8.3-10.6); CARBON DIOXIDE LEVEL 28 MMOL/L (20-31); CHLORIDE LEVEL 105 MMOL/L (98-107); CREATININE FOR GFR 0.67 MG/DL (0.70-1.30); GLOMERULAR FILTRATION RATE > 90.0 (>42); POTASSIUM SERUM 3.9 MMOL/L (3.5-5.1); SODIUM LEVEL 142 MMOL/L (136-145)
[2025-07-12 08:00] VITALS: BP 114/58; TEMP 98.8; O2SAT 93
[2025-07-12 20:52] VITALS: BP 113/59; TEMP 98.7; O2SAT 96
[2025-07-13 06:47] VITALS: BP 130/64; TEMP 98.7; O2SAT 96
[2025-07-13] MEDS: BENZONATATE 100 MG CAPSULE PO PRN (07:52)
[2025-07-13 08:00] VITALS: BP 122/58; TEMP 98.8; O2SAT 95
[2025-07-13 08:03] LABS: PLATELET COUNT, AUTOMATED 173 10^3/uL (150-450)
[2025-07-13 08:26] LABS: CALCIUM LEVEL 8.0 MG/DL (8.3-10.6); CARBON DIOXIDE LEVEL 27 MMOL/L (20-31); CHLORIDE LEVEL 106 MMOL/L (98-107); CREATININE FOR GFR 0.64 MG/DL (0.70-1.30); GLOMERULAR FILTRATION RATE > 90.0 (>42); POTASSIUM SERUM 4.1 MMOL/L (3.5-5.1); SODIUM LEVEL 142 MMOL/L (136-145)
[2025-07-13 14:00] VITALS: BP_SYST 11; BP_SYST 111; BP_DIAS 59; TEMP 98.3; O2SAT 95
[2025-07-14 04:48] VITALS: BP 148/77; TEMP 98.2; O2SAT 97
[2025-07-14 08:35] VITALS: BP 137/67
[2025-07-14] MEDS ORDERED: CARB25TA9 PO (12:06)
[2025-07-14] MEDS ORDERED: LIDO5TD TD (12:06)
[2025-07-14] MEDS ORDERED: TAMS1CAP17 PO (12:06)
== END 2025-07-14 14:10 | DRG 91 ==
LOC: M ED 17:43 → M ED INP 21:50 → M PCU 23:59 → OBSVTOIN 07-04 16:23 → M MS5PR 07-09 14:42
PROVIDERS: ADMIT Internal Medicine; ATTEND Internal Medicine
DX: G92.8 Other toxic encephalopathy (principal); J69.0 Pneumonitis due to inhalation of food and vomit; J18.9 Pneumonia, unspecified organism; J44.0 Chronic obstructive pulmonary disease with (acute) lower respiratory infection; F05 Delirium due to known physiological condition; M48.54XA Collapsed vertebra, not elsewhere classified, thoracic region, initial encounter for fracture; G20.A1 Parkinson's disease without dyskinesia, without mention of fluctuations; I48.0 Paroxysmal atrial fibrillation; I25.10 Atherosclerotic heart disease of native coronary artery without angina pectoris; K21.9 Gastro-esophageal reflux disease without esophagitis; I10 Essential (primary) hypertension; E78.5 Hyperlipidemia, unspecified; M10.9 Gout, unspecified; D64.9 Anemia, unspecified; F41.9 Anxiety disorder, unspecified; R73.03 Prediabetes; M19.90 Unspecified osteoarthritis, unspecified site; G47.33 Obstructive sleep apnea (adult) (pediatric); R33.9 Retention of urine, unspecified; R45.1 Restlessness and agitation; D70.2 Other drug-induced agranulocytosis; B96.4 Proteus (mirabilis) (morganii) as the cause of diseases classified elsewhere; G89.29 Other chronic pain; M54.50 Low back pain, unspecified; Z95.1 Presence of aortocoronary bypass graft; Z79.82 Long term (current) use of aspirin; Z79.899 Other long term (current) drug therapy; Z88.5 Allergy status to narcotic agent; Z85.038 Personal history of other malignant neoplasm of large intestine

== ENCOUNTER → 2025-07-17 | Outpatient (REF) ==
[~2025-07-17] MED LIST changes: +ACET-683 PO; +ASPI81TA26 PO; +CALC500T61 PO; +CARB-113 PO; +CINN500C12 PO; +FLON1SPR NARES; +LIDO5TD TD; +TAMS1CAP17 PO
[2025-07-17 10:26] LABS: PLATELET COUNT, AUTOMATED 232 10^3/uL (150-450)
[2025-07-17 11:02] LABS: CALCIUM LEVEL 8.1 MG/DL (8.3-10.6); CARBON DIOXIDE LEVEL 25 MMOL/L (20-31); CHLORIDE LEVEL 104 MMOL/L (98-107); CREATININE FOR GFR 0.72 MG/DL (0.70-1.30); GLOMERULAR FILTRATION RATE > 90.0 (>42); POTASSIUM SERUM 4.5 MMOL/L (3.5-5.1); SODIUM LEVEL 139 MMOL/L (136-145)
== END ==
PROVIDERS: ATTEND Physician Assistant
DX: M86.9 Osteomyelitis, unspecified (principal)

== ENCOUNTER → 2025-07-24 | Outpatient (REF) | PROVIDERS: ATTEND Physician Assistant | DX: I10 Essential (primary) hypertension (principal); Z53.8 Procedure and treatment not carried out for other reasons ==

== ENCOUNTER → 2025-07-24 | Outpatient (REF) ==
[2025-07-24 13:04] LABS: PLATELET COUNT, AUTOMATED 260 10^3/uL (150-450)
[2025-07-24 13:45] LABS: CALCIUM LEVEL 9.4 MG/DL (8.3-10.6); CARBON DIOXIDE LEVEL 22.0 MMOL/L (20-31); CHLORIDE LEVEL 104.0 MMOL/L (98-107); CREATININE FOR GFR 1.09 MG/DL (0.70-1.30); GLOMERULAR FILTRATION RATE 71.7 (>42); POTASSIUM SERUM 4.6 MMOL/L (3.5-5.1); SODIUM LEVEL 139.0 MMOL/L (136-145)
== END ==
PROVIDERS: ATTEND Physician Assistant
DX: M19.90 Unspecified osteoarthritis, unspecified site (principal)

== ENCOUNTER → 2025-08-08 | Outpatient (CLI) | payer MEDICARE | LOC: M WUC 14:57 | PROVIDERS: ATTEND Student in an Organized Health Care Education/Training Program | DX: R06.00 Dyspnea, unspecified (principal) ==

== ENCOUNTER → 2025-08-08 | Outpatient (REF) | payer MEDICARE | LOC: M SFHCCLAY 14:19 | PROVIDERS: ATTEND Student in an Organized Health Care Education/Training Program | DX: Z53.9 Procedure and treatment not carried out, unspecified reason (principal) ==